=== PATIENT | female | born 1955 | race Caucasian/White ===

== ENCOUNTER 2020-07-04 11:36 | Emergency (ER) | payer OTHER, SELFPAY ==
[2020-07-04 12:00] VITALS: BP 110/65; PULSE 73; RESP 20; TEMP 36.3; O2SAT 100; BMI 27.8
--- NOTE | 2020-07-04 12:23 | HMH.EDUTC ---
[facility] [place] Disposition Clinical Impression: COVID-19 virus test result unknown, Upper respiratory infection, viral Disposition: Home, Self-Care Condition on Discharge: Good Instructions: DI for COVID-19 (Suspected or Confirmed ), Preventing the Spread of Coronavirus Discharge Instructions Additional Instructions: increase fluids tylenol or motrin as needed if symptoms worsen return o be seen in ed follow up with pcp this week self isolate until test results are known to be neg Prescriptions: Fluticasone Propionate [Flonase 50mcg nasal spray 16gm] 1 spr NS DAILY 14 Days #1 bottle Transmission Status: Pending to [id number] Referrals: Obdulio Hernandez [Primary Care Provider] - Time of Disposition: 12:30 Medical Decision Making - Patrick Inquiry Pt receiving controlled substance: No Vital Signs: 07/04/20 12:00 Temperature 97.4 F L Temperature Source Oral Pulse Rate [Right Brachial] 73 Respiratory Rate 20 Blood Pressure [Right Arm] 110/65 Blood Pressure Mean [Right Arm] 80 Blood Pressure Source [Right Arm] Automatic Cuff Blood Pressure Position [Right Arm] Sitting 02 Sat by Pulse Oximetry 100 Oxygen Delivery Method Room Air Orders (Tests/Meds): ORDERS Category Date Time Status Covid-19 Nasal PCR ([facility]) Routine Lab 07/04/20 11:44 Ordered [facility] [place] HPI - General Chief complaint: Urgent Treatment Center Stated complaint: WHITTAKER;Vomiting;Dizzy Time Seen by Provider: 07/04/20 12:23 Mode of Arrival: Ambulatory Source of Information: Patient Limitations: No Limitations Description of Symptoms (Recalled from Triage Doc. by RN): PATIENT C/O CHILLS, DIZZINESS, HEADACHE, AND VOMITING SINCE MONDAY. REQUESTING A COVID TEST HEENT Symptoms (Recalled from RN notes): No Resp Symptoms (Recalled from RN notes): No Skin Symptoms (Recalled from RN notes): No MS Symptoms (Recalled from RN notes): No Functional Status (Recalled from RN notes): WNL - History of Present Illness Provider Complaint: 64 yr old female presents for chills,body aches,nasal congestion and dizzy for 3 days and requesting covid test. - Related Data Home Medications Medication Instructions Recorded Confirmed venlafaxine 150 mg PO #30 cap 01/24/19 01/24/19 capsule,extended release 24 hr Previous Rx's Medication Instructions Recorded Fluticasone Propionate [Flonase 1 spr NS DAILY 14 Days #1 bottle 07/04/20 50mcg nasal spray 16gm] Allergies Allergy/AdvReac Type Severity Reaction Status Date / Time No Known Allergies Allergy Verified 01/24/19 10:33 - Worker's Comp Is this a Worker's Comp case?: No [facility] History - Hepatitis A Screen Drug use history?: No High risk sexual behaviors?: No History of sexually transmitted infection?: No Currently employed?: No Childcare worker?: No Do you have indoor plumbing?: Yes Do you have electricity?: Yes Attestation statement:: This patient has been screened for Hepatitis A risk factors. I have reviewed the patient's past medical history: Yes Medical History: Reports:: Anxiety Laterality Cases: Left: Other, Bilateral: Tonsillectomy Other Surgeries: Yes: - Social History Smoking Status: Never smoker Alcohol Intake: never Alcohol Intake Frequency:: holidays/special occasions only Substance Use Type: denies use Occupational Status: other Housing: house Household Members: family - Psychiatric History Pschychiatric History:: Reports:: Anxiety Family Hx:: No significant family history ROS Obtained: Yes Systems reviewed as appropriate & no additional complaints - Constitutional Constitutional: Reports system reviewed and no additional complaints, except as docu, Reports body ache, Reports chills, Reports fatigue, Denies fever(s) - Eyes Eyes: Reports system reviewed and no additional complaints, except as docu, Denies floaters - ENT Ears, Nose, Mouth, and Throat: Reports system reviewed and no additional complaints, except as docu, Reports dizziness, Repo
[2020-07-04 12:35] VITALS: BP 110/65; PULSE 73; RESP 20; TEMP 36.3; O2SAT 100
== END 2020-07-04 12:38 | disposition home or self-care (01) ==
PROVIDERS: Emergency Provider Nurse Practitioner Family; PCP Internal Medicine
DX: Z20.822 Contact with and (suspected) exposure to COVID-19 (principal); R42 Dizziness and giddiness; F41.9 Anxiety disorder, unspecified; Z79.899 Other long term (current) drug therapy
CPT/HCPCS: 99202; G0463; U0003

== ENCOUNTER → 2021-06-29 10:29 | Outpatient (CLI) | payer OTHER, SELFPAY | PROVIDERS: PCP Internal Medicine; Visit Provider Nurse Practitioner | DX: U07.1 COVID-19 (principal) | CPT/HCPCS: C9803; U0003; U0005 ==

== ENCOUNTER → 2021-09-06 14:11 | Outpatient (CLI) | payer MEDICARE, OTHER, SELFPAY ==
--- NOTE | 2021-09-06 14:18 | XR_ITS ---
FINAL REPORT CLINICAL HISTORY: LUMBAGO W/RT SCIATICA FINDINGS: 5 views of the lumbar spine were obtained. There is no evidence of fracture or dislocation. The vertebral alignment is normal. There are mild and moderate degenerative changes. There is mild leftward curvature. There is multilevel facet arthropathy. No paraspinous soft tissue abnormalities identified. IMPRESSION: Mild and moderate degenerative changes with multilevel facet arthropathy. Reviewed, Interpreted and Dictated by Merrill Seth III, MD Transcribed by Darren Del Rio Authenticated by Merrill Seth III, MD on 09/06/2021 04:23:44 PM [facility]
== END ==
PROVIDERS: PCP Internal Medicine; Visit Provider Internal Medicine
DX: M54.42 Lumbago with sciatica, left side (principal)
CPT/HCPCS: 72110

== ENCOUNTER → 2021-12-20 12:25 | Outpatient (CLI) | payer MEDICARE, OTHER, SELFPAY ==
[2021-12-20 13:13] LABS: Basophils % 0.7 % (0.1-2.0); Eosinophils # 0.1 K/mm3 (0.0-0.4); Eosinophils % 2.4 % (0.1-12.0); Hematocrit 39.5 % (37.0-47.0); Lymphocytes # 1.5 K/mm3 (0.7-4.5); Lymphocytes % 30.8 % (10-50); Mean Corpuscular HGB Conc 32.8 g/dL (31.8-35.4); Mean Corpuscular Hemoglobin 29.2 pg (27.0-31.2); Mean Corpuscular Volume 88.8 fl (81-99); Monocytes # 0.3 K/mm3 (0.1-1.0); Monocytes % 6.8 % (1.7-9.3); Neutrophils # 2.9 K/mm3 (1.8-7.8); Neutrophils % 59.3 % (37.0-80.0); Platelet Count 253 K/mm3 (142-424); Red Blood Count 4.44 M/mm3 (4.20-5.40); Red Cell Distribution Width 13.8 % (11.5-17.5)
[2021-12-20 13:58] LABS: Alanine Aminotransferase 24 U/L (12-78); Albumin Level 3.8 g/dl (3.5-5.0); Albumin/Globulin Ratio 1.7 (1.1-1.8); Alkaline Phosphatase 78 U/L (38-126); Anion Gap 11.2 mEq/L (5-15); Aspartate Amino Transferase 25 U/L (14-36); Bilirubin,Total 0.3 mg/dl (0.2-1.3); Blood Urea Nitrogen 13 mg/dl (7-17); Calcium 9.1 mg/dl (8.4-10.2); Carbon Dioxide 26 mmol/L (22.0-30.0); Chloride 104 mmol/L (98-107); Chol/HDL Ratio 2.2 (1-3.5); Cholesterol 182 mg/dl (140-200); Estimated Glomerular Filt Rate 72 ml/min (>60); GFR (African American) 87 ML/MIN (>60); Globulin 2.2 g/dL (1.3-3.2); Glucose 105 mg/dl (74-100); HDL Cholesterol 81 mg/dl (40-60); Potassium 4.2 mmoL/L (3.5-5.1); Sodium 137 mmol/L (136-145); Triglycerides 152 mg/dl (30-150); VLDL Cholesterol 30 mg/dL (0-40)
[2021-12-20 14:09] LABS: Direct LDL Cholesterol 58.62 mg/dL (100-129)
[2021-12-20 14:29] LABS: Thyroid Stimulating Hormone 5.08 uIU/mL (0.465-4.68)
== END ==
PROVIDERS: PCP Internal Medicine; Visit Provider Internal Medicine
DX: E03.9 Hypothyroidism, unspecified (principal); E78.5 Hyperlipidemia, unspecified; R73.01 Impaired fasting glucose
CPT/HCPCS: 80053; 80061; 84443; 85025

== ENCOUNTER → 2022-06-22 09:38 | Outpatient (CLI) | payer MEDICARE, OTHER, SELFPAY ==
--- NOTE | 2022-06-22 09:43 | XR_ITS ---
FINAL REPORT CLINICAL HISTORY: HIP PAIN FINDINGS: AP and frog leg views of the right hip were obtained. There is no prior exam for comparison. There is no acute fracture or dislocation. There is right hip degenerative disease. Soft tissues are within normal limits. IMPRESSION: No acute osseous abnormality of the right hip. If pain persists, MR is recommended. Reviewed, Interpreted and Dictated by Margarita Parham MD Transcribed by Jess Fernandez Authenticated and [facility]
== END ==
PROVIDERS: PCP Internal Medicine; Visit Provider Internal Medicine
DX: M25.551 Pain in right hip (principal)
CPT/HCPCS: 73502

== ENCOUNTER → 2022-06-22 11:54 | Outpatient (CLI) | payer MEDICARE, OTHER, SELFPAY ==
[2022-06-22 13:17] LABS: Chloride 108 mmol/L (98-107); Potassium 4.7 mmoL/L (3.5-5.1); Sodium 141 mmol/L (136-145)
[2022-06-22 13:19] LABS: Alanine Aminotransferase 29 U/L (12-78); Alkaline Phosphatase 85 U/L (38-126); Aspartate Amino Transferase 29 U/L (14-36); Bilirubin,Total 0.6 mg/dl (0.2-1.3); Blood Urea Nitrogen 14 mg/dl (7-17); Estimated Glomerular Filt Rate 72 ml/min (>60); GFR (African American) 87 ML/MIN (>60)
[2022-06-22 13:20] LABS: Albumin Level 4.1 g/dl (3.5-5.0); Albumin/Globulin Ratio 1.9 (1.1-1.8); Anion Gap 9.7 mEq/L (5-15); Calcium 8.9 mg/dl (8.4-10.2); Carbon Dioxide 28 mmol/L (22.0-30.0); Chol/HDL Ratio 2.3 (1-3.5); Cholesterol 168 mg/dl (140-200); Globulin 2.2 g/dL (1.3-3.2); Glucose 110 mg/dl (74-100); HDL Cholesterol 74 mg/dl (40-60); Total Protein,Serum 6.3 g/dl (6.3-8.2); Triglycerides 138 mg/dl (30-150); VLDL Cholesterol 28 mg/dL (0-40)
[2022-06-22 13:36] LABS: Direct LDL Cholesterol 51.27 mg/dL (100-129)
== END ==
PROVIDERS: PCP Internal Medicine; Visit Provider Internal Medicine
DX: E03.9 Hypothyroidism, unspecified (principal); E78.5 Hyperlipidemia, unspecified; R73.01 Impaired fasting glucose; F33.1 Major depressive disorder, recurrent, moderate; F41.9 Anxiety disorder, unspecified; M54.41 Lumbago with sciatica, right side
CPT/HCPCS: 73502; 80053; 80061; 84443

== ENCOUNTER → 2022-06-29 14:54 | Outpatient (CLI) | payer MEDICARE, OTHER, SELFPAY ==
--- NOTE | 2022-06-29 14:58 | MR_ITS ---
FINAL REPORT TECHNIQUE: Multiplanar MR without contrast CLINICAL HISTORY: LUMBAGO WITH RIGHT SCIATICA pain x 1 year FINDINGS: Sagittal images show normal vertebral height. There is minimal anterolisthesis of L2 on 3. The alignment is otherwise normal. Marrow signal pattern is unremarkable. T11-12: Mild annular disc bulge. T12-L1: Mild annular disc bulge. L1-2: Unremarkable L2-3: Mild annular disc bulge. Moderate facet arthropathy. Borderline central canal stenosis. L3-4: Moderate annular disc bulge and moderate facet arthropathy. Mild central canal stenosis. Moderate bilateral neural foraminal narrowing. L4-5: Mild annular disc bulge. Severe facet overgrowth. Ligamentum flavum hypertrophy. Moderate central canal stenosis and mild neural foraminal narrowing. L5-S1: Mild annular disc bulge. Moderate facet arthropathy. Mild central canal stenosis and mild neural foraminal narrowing. IMPRESSION: Multilevel degenerative disc disease, most pronounced at L4-5. Reviewed, Interpreted and Dictated by Jude Romero MD Transcribed by Jess Fernandez Authenticated and . [facility]
== END ==
PROVIDERS: PCP Internal Medicine; Visit Provider Internal Medicine
DX: M54.41 Lumbago with sciatica, right side (principal)
CPT/HCPCS: 72148; 76376

== ENCOUNTER → 2022-07-08 08:55 | Outpatient (POV) | payer MEDICARE, OTHER, SELFPAY ==
[2022-07-08 09:05] VITALS: BP 149/68; PULSE 69; RESP 18; O2SAT 98; BMI 28.5
--- NOTE | 2022-07-08 09:35 | EXP.PAIN.OV ---
HPI Data of Consult Patient: new to practice Consult date: 07/08/22 Requesting Physician: Stef Durham CRNA Primary Care Provider: Obdulio Hernandez MD Consult Narrative Reason for consult: Lumbar back pain. Bilateral hip and leg radicular symptoms. Right greater History of present illness: Ms. Wheeler is a 66 year old female who comes our clinic today for initial evaluation regarding low back pain that she describes as constant, dull, aching. The majority of her low back pain is off the right from the midline. She also complains of right buttock, thigh and sometimes radicular symptoms to the right foot. She rates her pain today 8/10. 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 She has difficulty with flexion, extension, left and right rotation. Patient's lumbar MRI was reviewed with the patient and her . Lumbar MRI shows multilevel degenerative disc lumbar spine. Disc bulge L4-5 with some moderate bilateral neural foraminal narrowing. Disc bulge L5-S1 with mild central canal stenosis. Multilevel facet arthropathy. Multilevel spondylosis. I discussed in detail with the patient regarding lumbar epidural steroid injection at the L4-5 level. Also, discussed exam with the patient regarding right sacroiliac joint inflammation. CC: Stef Durham CRNA [facility] Disclaimer: The information contained in this section may have been updated after the patient was seen, as this information can be updated by other users. Medical History (Updated 07/08/22 @ 09:42 by Stef Durahm CRNA) Anxiety Surgical History (Updated 07/08/22 @ 09:09 by Loren Carroll RN) H/O section H/O wrist surgery Hx of tonsillectomy Social History (Updated 07/08/22 @ 09:09 by Loren Carroll RN) Smoking Status: Never smoker alcohol intake: never substance use type: denies use current occupational status: employed and other Travel in the last 8 weeks: None household members: family housing: house Review of Systems Review of Systems Review of systems (narrative): Patient is awake alert [place] x3. In no acute distress. Flexion-extension lumbar spine very guarded secondary to pain. Deep tendon reflexes upper lower extremities normal. Motor strength upper and lower extremities normal. There is no gross sensory deficit. Gait is normal. *Musculoskeletal Comments: Lumbar back pain. Lumbar radiculopathy symptoms Meds Home Medications and Allergies Home Medications Medication Instructions Recorded Confirmed Type venlafaxine 150 mg 150 mg PO DAILY MOOD #30 caps 01/24/19 07/08/22 History capsule,extended release 24 hr fluticasone propionate 50 1 spr NS DAILY ALLERGIES 07/08/22 07/08/22 History mcg/actuation nasal spray,suspension New Prescriptions to Start Prescriptions: Allergies Allergy/AdvReac Type Severity Reaction Status Date / Time No Known Allergies Allergy Verified 01/24/19 10:33 Objective Vital signs: Pulse Resp BP Pulse Ox 69 18 149/68 H 98 07/08/22 09:05 07/08/22 09:05 07/08/22 09:05 07/08/22 09:05 Opioid Risk Tool Opioid Risk Tool-Female Family hx alcohol abuse: No Family hx illegal drugs: No Family hx rx drug abuse: No Personal hx alcohol abuse: No Personal hx illegal drugs: No Personal hx rx drug abuse: No Age: 45+ Hx of sexual abuse: No Mental health issues-ADD,OCD,Bipolar, etc: No Hx of depression: Yes Female Risk Score: 1 Assessment and Plan *Assessment and plan (1) DDD (degenerative disc disease), lumbar: Status: Acute Category: Medical Code(s): M51.36 - Other intervertebral disc degeneration, lumbar region (2) Radicular pain of both lower extremities: Status: Acute Category: Medical Code(s): M54.10 - Radiculopathy, site unspecified (3) Sacroiliac inflammation: Status: Acute Category: Medical Code(s): M46.1 - Sacroi
== END ==
PROVIDERS: PCP Internal Medicine; Visit Provider Nurse Anesthetist, Certified Registered
DX: M51.16 Intervertebral disc disorders with radiculopathy, lumbar region (principal); M46.1 Sacroiliitis, not elsewhere classified
CPT/HCPCS: 99202; G0463

== ENCOUNTER 2022-07-12 08:20 | Day surgery (SDC) | payer MEDICARE, OTHER, SELFPAY ==
[2022-07-12 08:34] VITALS: BP 153/91; PULSE 65; RESP 18; TEMP 36.6; O2SAT 99; BMI 28.5
[2022-07-12 08:58] VITALS: BP 158/77; PULSE 62; RESP 18; O2SAT 98
[2022-07-12 08:59] VITALS: BP 158/77; PULSE 62; RESP 18; O2SAT 98
[2022-07-12 09:01] VITALS: BP 150/70; PULSE 62; RESP 18; O2SAT 99
--- NOTE | 2022-07-12 09:22 | EXP.PAIN.PRO ---
Procedure Date: 07/12/22 Time: 09:00 Anesthesiologist:: Stef Durham CRNA Complications:: None Pre-procedure Diagnosis:: Degenerative disc disease lumbar spine multilevels. Lumbar radiculopathy Post-procedure Diagnosis:: Same. Indications for Procedure:: Very pleasant 66-year-old female comes our clinic today for lumbar epidural steroid injection at the L4-5 level. Patient describes her low back pain is constant, dull, aching. Also complains of bilateral hip and leg radicular symptoms at times. She rates her pain today 7/10. Procedure Details:: Procedure: Lumbar epidural steroid injection under fluoroscopy Informed consent was obtained and the risks and benefits of the procedure were explained to the patient. The patient was taken to the procedure room and noninvasive monitors placed, including noninvasive blood pressure cuff and pulse oximeter. The back was viewed using C-arm Fluoroscopy and prepped using Chloraprep as a cleansing solution and the L4-L5 interspace was palpated. Skin and subcutaneous tissues were anesthetized using lidocaine 1.5% and a 25-gauge needle. After this, an 18-gauge Touhy epidural needle was placed into the L4-L5 interspace and advanced using fluoroscopic guidance and loss of resistance to air until the epidural space was encountered. After confirmation of needle placement in the epidural space, with dye, a solution containing normal saline, 3 mL and Depo-Medrol 80 mg were incrementally injected into the lumbar epidural space. The patient tolerated the procedure well with no complications. The patient was observed in the Pain Clinic and then discharged home neurologically intact. Plan and Disposition:: Patient was discharged without incident.
== END 2022-07-12 09:01 | disposition home or self-care (01) ==
PROVIDERS: PCP Internal Medicine; Visit Provider Nurse Anesthetist, Certified Registered
DX: M51.16 Intervertebral disc disorders with radiculopathy, lumbar region (principal)
CPT/HCPCS: 62323; J1040

== ENCOUNTER → 2022-08-17 10:09 | Outpatient (POV) | payer MEDICARE, OTHER, SELFPAY ==
[2022-08-17 10:34] VITALS: BP 129/81; PULSE 69; RESP 20; BMI 27.8
--- NOTE | 2022-08-17 12:15 | A.OFFVIS_ITS ---
[facility] Pain Management SOAP Note Subjective:: Patient is a pleasant 67-year-old female who presents today for follow-up of lumbar epidural steroid injection at L4-L5 on 07/12/2022. We are currently treating the patient for degenerative disc disease of lumbar spine with lumbar radiculopathy symptoms, sacroiliitis. Today she states that she has had at least 80% improvement following this injection and feels like it still continuing to provide additional relief. She rates her pain a 0 out of 10. Patient denies any new trauma or injury. Patient denies any change location or type of pain she experiences. She does state that she has noticed improvement in her sleeping as well as her hips are no longer hurting. Patient will just use ibuprofen as needed however she is not needed to do this since having the injection. Patient is not on any scheduled medications. Her Patrick is [phone]. Its been reviewed and appropriate. Review of Systems: General: No recent weight changes, no fever, no sleep disturbances Respiratory: No cough, no shortness of air, no recurring pulmonary infections Cardiovascular/peripheral vascular: No chest pain, no palpitations, no edema, no shortness of breath Gastrointestinal: No new onset incontinence, normal bowel movements reported Genitourinary: No new onset incontinence Musculoskeletal: Low back pain Psychiatric: [Normal mood/affect] Neurological: [Denies weakness in extremities], [denies balance issues] Objective:: Physical Exam: General: Alert and oriented x3, no acute distress, pleasant and cooperative Lungs: Respirations even and unlabored, symmetrical chest expansion Eyes: PERRL Musculoskeletal: Flexion and extension of lumbar [spine] somewhat guarded secondary to pain, [antalgic gait noted] Neurological: Speech clear, no gross sensory deficit Assessment:: Degenerative disc disease of lumbar spine with lumbar radiculopathy symptoms, sacroiliitis Plan:: Patient has had significant improvement following her lumbar epidural steroid injection and does not require any additional injective therapy at this time. Patient will return to clinic in 1 month for reevaluation of symptoms, and plan of care. Patient has been instructed to contact the clinic with any concerns before the next appointment. Dr. Wilder has reviewed this note and agrees with this plan of care. This note was dictated using voice recognition software and make contain errors or omissions. [facility] Disclaimer: The information contained in this section may have been updated after the patient was seen, as this information can be updated by other users. Medical History Anxiety Surgical History H/O section H/O wrist surgery Hx of tonsillectomy Family History (Updated 07/12/22 @ 08:35 by Yue Hansen RN) Other No significant family history Social History Smoking Status: Never smoker alcohol intake: never substance use type: denies use current occupational status: employed Travel in the last 8 weeks: None household members: family housing: house
== END ==
PROVIDERS: PCP Internal Medicine; Visit Provider Nurse Practitioner Family
DX: M51.16 Intervertebral disc disorders with radiculopathy, lumbar region (principal); M46.1 Sacroiliitis, not elsewhere classified
CPT/HCPCS: 99212; G0463

== ENCOUNTER 2022-08-22 14:42 | Emergency (ER) | payer MEDICARE, OTHER, SELFPAY ==
[2022-08-22 14:43] VITALS: BP 131/77; PULSE 71; RESP 18; TEMP 36.5; O2SAT 100; BMI 27.8
--- NOTE | 2022-08-22 15:02 | XR_ITS ---
FINAL REPORT CLINICAL HISTORY: fall, pain FINDINGS: 3 views of the left shoulder were obtained. There is no acute fracture or dislocation. The joint spaces are intact. There are no soft tissue abnormalities. IMPRESSION: No acute process. Reviewed, Interpreted and Dictated by Haris Sharif MD Transcribed by Darren Del Rio Authenticated and [facility]
--- NOTE | 2022-08-22 15:02 | PC.NURSE ---
ice pack placed on L shoulder area.
[2022-08-22 16:27] VITALS: BP 115/70; PULSE 72; RESP 18; O2SAT 95
--- NOTE | 2022-08-22 16:32 | HMH.EDGENADL ---
Discharge Plan Disposition Patient Disposition: Home, Self-Care Condition: Good Chief Complaint: Extremity Injury, Upper Prescriptions Prescriptions: No Action venlafaxine 150 mg capsule,extended release 24hr 150 mg PO DAILY Qty: 30 Label Comments: TAKE 1 CAPSULE BY MOUTH ONCE DAILY fluticasone propionate 120 SPR/BOT spray,suspension 1 spr NS DAILY Referrals Follow up/Referrals: Obdulio Hernandez MD [Primary Care Provider] - See instructions Clinical Impressions Clinical Impression: Fall, Acute pain of left shoulder Instructions Patient Instructions: DI for Chronic Pain -- Adult Discharge ED Provider: Johnny Mays General Adult HPI General Chief complaint: Extremity Injury, Upper Stated complaint: left arm pain ao fell at home 1:30 08/22/22 Time Seen by Provider: 08/22/22 16:32 Mode of Arrival: Ambulatory Source of Information: Patient Limitations: No Limitations Description of Symptoms (Recalled from ER Triage Doc. by RN): pt c/o L shoulder and L elbow pain r/t fall. Pt reports she tripped her dog and fell, landing on her shoulder. Pt denies LOC. Denies head/neck or Lower extremity pain. No open areas noted. to LUE. History of Present Illness HPI narrative: 67yo F presents the ER after tripping over her dog and falling. Complains of left shoulder pain. Denies head strike or LOC. Denies any other injury besides her left shoulder. No history of fracture of her shoulder or prior surgery to her shoulder. Related Data Home Medications Medication Instructions Recorded Confirmed venlafaxine 150 mg 150 mg PO DAILY MOOD #30 caps 01/24/19 08/17/22 capsule,extended release 24 hr fluticasone propionate 50 1 spr NS DAILY ALLERGIES 07/08/22 08/17/22 mcg/actuation nasal spray,suspension Allergies Allergy/AdvReac Type Severity Reaction Status Date / Time No Known Allergies Allergy Verified 07/12/22 08:35 [facility] Disclaimer: The information contained in this section may have been updated after the patient was seen, as this information can be updated by other users. Medical History Anxiety Surgical History H/O section H/O wrist surgery Hx of tonsillectomy Family History Other No significant family history Social History Smoking Status: Never smoker alcohol intake: never substance use type: denies use current occupational status: employed Travel in the last 8 weeks: None household members: family housing: house ROS Obtained: Yes Systems reviewed as appropriate & no additional complaints except as documented Physical Exam General General appearance: alert and in no apparent distress Head Head exam: atraumatic Eye Eye exam: Present normal appearance Chest Chest inspection: Present normal inspection Respiratory Respiratory exam: Present normal lung sounds bilaterally Cardiovascular Cardiovascular exam: Present regular rate and normal rhythm Extremities Exam Extremities exam: Present tenderness (Left shoulder exquisitely tender to palpate) and normal capillary refill; Absent full ROM, edema or joint swelling Neurological Exam Neurological exam: Present alert, oriented X3 and CN II-XII intact Medical Decision Making Medical Records Medical records reviewed: Yes I reviewed the patient's medical records. Patrick Inquiry Pt receiving controlled substance: No Vital Signs: 08/22/22 14:43 08/22/22 16:27 Temperature 97.7 F Temperature Source Oral Pulse Rate 72 Pulse Rate [Right Radial] 71 Respiratory Rate 18 18 Blood Pressure 115/70 Blood Pressure [Right Arm] 131/77 Blood Pressure Mean [Right Arm] 95 Blood Pressure Source Automatic Cuff Blood Pressure Source [Right Arm] Automatic Cuff Blood Pressure Position Sittin
[2022-08-22 16:48] VITALS: BP 125/71; PULSE 76; RESP 16; TEMP 36.5; O2SAT 96
== END 2022-08-22 16:48 | disposition home or self-care (01) ==
PROVIDERS: Emergency Provider Family Medicine; PCP Internal Medicine
DX: M25.512 Pain in left shoulder (principal); W01.10XA Fall on same level from slipping, tripping and stumbling with subsequent striking against unspecified object, initial encounter
CPT/HCPCS: 73030; 99283; 99284

== ENCOUNTER → 2022-10-04 13:30 | Outpatient (CLI) | payer MEDICARE, OTHER, SELFPAY ==
--- NOTE | 2022-10-04 13:34 | MR_ITS ---
FINAL REPORT CLINICAL HISTORY: DUE TO A FALL FALL X 7 WEEKS AGO LIMITED ROM FINDINGS: Multi planar MR imaging of the left shoulder was performed. The supraspinatus tendon appears intact. There is no abnormal fluid in the subacromial/subdeltoid bursa. There is extensive marrow edema in the proximal humeral metaphysis. A transverse fracture extends through the surgical neck. Neck component extends to the anatomic neck. Fracture is mildly impacted. There is surrounding fluid. There is irregularity of the anterior glenoid labrum consistent with a chronic tear. The biceps tendon appears intact. There are mild hypertrophic changes of the AC joint. IMPRESSION: Impacted fracture of the proximal humeral metaphysis involving the surgical and anatomic necks. Chronic anterior labral tear. Reviewed, Interpreted and Dictated by Haris Sharif MD Transcribed by Darren Del Rio Authenticated and [facility]
== END ==
PROVIDERS: PCP Internal Medicine; Visit Provider Internal Medicine
DX: S40.012A Contusion of left shoulder, initial encounter (principal); W19.XXXA Unspecified fall, initial encounter
CPT/HCPCS: 73221

== ENCOUNTER 2022-10-06 11:00 | Outpatient (RCR) | payer MEDICARE, OTHER, SELFPAY ==
--- NOTE | 2022-08-29 09:01 | HMH.OTOPEV ---
OT Inpatient Evaluation Rehab OT Outpatient Eval Start: 08/29/22 08:40 Freq: Status: Active Protocol: Document 08/29/22 08:40 DONNA (Rec: 08/29/22 09:01 VICENTEADRIAN [id number]) E-signed By Kirsten Smith, OT Outpatient Therapy Subjective History Subjective History 67 year old female referred to skilled OP OT services for L shld contustion after having a falling at home on 08/22/22. Patient fell at home on concrete after her dog out underneath her legs. X-ray shows no fractures at this time. However Patient exhibit limited AROM and bruising underneath arm. Chief Complaint Pain,Weakness Symptom Type Ache Symptoms Relieved By Nothing Symptoms Aggravated By Physical Activity Prior Functional Limitations None Current Functional Limitations Reaching,Lifting,Driving, Sleeping,Recreation Activity Symptom Description Constant and Continuous Level of pain today (0-10) 4 Pain scale - at its best (0-10) 4 Pain scale - at its worst (0-10) 10 Shoulder/Elbow Eval Shoulder Objective Measurements Shoulder ROM Left Shoulder Abduction Active Range of 50 Motion (degrees) Shoulder Flexion Active Range of Motion 40 (degrees) Query Text: Shoulder External Rotation Active Range 0 of Motion (degrees) Shoulder Internal Rotation Active Range 30 of Motion (degrees) pain with active ROM shoulder exam left standard Shoulder MMT Shoulder Extension Strength Grade 2 Poor Shoulder Flexion Strength Grade 2 Poor Shoulder Horizontal Abduction Strength 2 Poor Grade Shoulder Horizontal Adduction Strength 2 Poor Grade Infraspinatus/Teres Minor Strength Grade 2 Poor Shoulder External Rotation Strength 2 Poor Grade Shoulder Internal Rotation Strength 2 Poor Grade Shoulder Special Tests impingement sign present shoulder exam left standard Shoulder Empty Can (Supraspinatus) Test Positive Left Shoulder Devine-Gage Impingement Positive Left Test Elbow Objective Measurements OT Outpatient Assessment Impairments Problems/Impairments Impaired Range of Motion, Impaired Strength,Subjective C /O Pain Prognosis Rehab Potential Good Clinical Impression
== END 2022-10-06 11:05 | disposition home or self-care (01) ==
LOC: OT 11:00
PROVIDERS: PCP Internal Medicine; Visit Provider Internal Medicine
DX: S40.012S Contusion of left shoulder, sequela (principal); W19.XXXS Unspecified fall, sequela
CPT/HCPCS: 97010; 97014; 97110; 97140; 97164; 97165; 97530; G0283

== ENCOUNTER 2023-01-05 11:00 | Outpatient (RCR) | payer MEDICARE, OTHER, SELFPAY | END 2023-01-05 11:05 | disposition home or self-care (01) | LOC: OT 11:00 | PROVIDERS: PCP Internal Medicine; Visit Provider Orthopaedic Surgery Sports Medicine | DX: S42.202A Unspecified fracture of upper end of left humerus, initial encounter for closed fracture (principal) | CPT/HCPCS: 97010; 97014; 97035; 97110; 97140; 97164; 97165; 97530; G0283 ==

== ENCOUNTER → 2023-01-09 17:00 | Outpatient (CLI) | payer MEDICARE, OTHER, SELFPAY ==
[2023-01-09 18:14] LABS: Basophils % 0.6 % (0.1-2.0); Eosinophils # 0.1 K/mm3 (0.0-0.4); Eosinophils % 2.4 % (0.1-12.0); Lymphocytes # 1.6 K/mm3 (0.7-4.5); Lymphocytes % 30.7 % (10-50); Mean Corpuscular HGB Conc 31.7 g/dL (31.8-35.4); Mean Corpuscular Hemoglobin 28.7 pg (27.0-31.2); Mean Corpuscular Volume 90.5 fl (81-99); Mean Platelet Volume 9.4 fl (7.4-10.4); Monocytes # 0.5 K/mm3 (0.1-1.0); Monocytes % 8.9 % (1.7-9.3); Neutrophils % 57.4 % (37.0-80.0); Platelet Count 247 K/mm3 (142-424); Red Blood Count 4.53 M/mm3 (4.20-5.40); Red Cell Distribution Width 14.2 % (11.5-17.5); White Blood Count 5.3 K/mm3 (4.8-10.8)
[2023-01-09 18:37] LABS: Alanine Aminotransferase 37 U/L (12-78); Albumin Level 4.1 g/dl (3.5-5.0); Albumin/Globulin Ratio 1.8 (1.1-1.8); Alkaline Phosphatase 87 U/L (38-126); Anion Gap 11.8 mEq/L (5-15); Aspartate Amino Transferase 34 U/L (14-36); Bilirubin,Total 0.3 mg/dl (0.2-1.3); Blood Urea Nitrogen 13 mg/dl (7-17); Calcium 9.1 mg/dl (8.4-10.2); Carbon Dioxide 26 mmol/L (22.0-30.0); Chloride 107 mmol/L (98-107); Chol/HDL Ratio 2.1 (1-3.5); Cholesterol 196 mg/dl (140-200); Estimated Glomerular Filt Rate 84 ml/min (>60); GFR (African American) 101 ML/MIN (>60); Globulin 2.3 g/dL (1.3-3.2); Glucose 87 mg/dl (74-100); HDL Cholesterol 94 mg/dl (40-60); Potassium 4.8 mmoL/L (3.5-5.1); Sodium 140 mmol/L (136-145); Total Protein,Serum 6.4 g/dl (6.3-8.2); Triglycerides 119 mg/dl (30-150); VLDL Cholesterol 24 mg/dL (0-40)
[2023-01-09 18:51] LABS: Direct LDL Cholesterol 69.92 mg/dL (100-129)
[2023-01-09 19:08] LABS: Thyroid Stimulating Hormone 2.48 uIU/mL (0.465-4.68)
== END ==
PROVIDERS: PCP Internal Medicine; Visit Provider Internal Medicine
DX: E03.9 Hypothyroidism, unspecified (principal); E78.5 Hyperlipidemia, unspecified; F33.1 Major depressive disorder, recurrent, moderate; F41.9 Anxiety disorder, unspecified; R73.01 Impaired fasting glucose
CPT/HCPCS: 80053; 80061; 84443; 85025

== ENCOUNTER 2023-07-17 17:05 | Outpatient (CLI) | payer MEDICARE, OTHER, SELFPAY ==
[2023-07-17 18:11] LABS: Alanine Aminotransferase 25 U/L (12-78); Albumin Level 3.9 g/dl (3.5-5.0); Albumin/Globulin Ratio 1.9 (1.1-1.8); Alkaline Phosphatase 73 U/L (38-126); Aspartate Amino Transferase 26 U/L (14-36); Bilirubin,Total 0.7 mg/dl (0.2-1.3); Blood Urea Nitrogen 18 mg/dl (7-17); Calcium 9.2 mg/dl (8.4-10.2); Carbon Dioxide 28 mmol/L (22.0-30.0); Chloride 105 mmol/L (98-107); Chol/HDL Ratio 2.4 (1-3.5); Cholesterol 188 mg/dl (140-200); Estimated Glomerular Filt Rate 84 ml/min (>60); GFR (African American) 101 ML/MIN (>60); Globulin 2.1 g/dL (1.3-3.2); Glucose 91 mg/dl (74-100); HDL Cholesterol 78 mg/dl (40-60); Sodium 139 mmol/L (136-145); Triglycerides 100 mg/dl (30-150); VLDL Cholesterol 20 mg/dL (0-40)
[2023-07-17 18:22] LABS: Direct LDL Cholesterol 68.46 mg/dL (100-129)
== END 2023-07-17 23:59 ==
LOC: LAB.DROPOF 17:06
PROVIDERS: PCP Internal Medicine; Visit Provider Internal Medicine
DX: R73.01 Impaired fasting glucose (principal); E03.9 Hypothyroidism, unspecified; E78.5 Hyperlipidemia, unspecified
CPT/HCPCS: 80053; 80061

== ENCOUNTER 2023-09-14 08:32 | Outpatient (POV) | payer MEDICARE, MEDICAID, SELFPAY ==
[2023-09-13 09:06] VITALS: BP 152/73; PULSE 71; RESP 18; TEMP 36.6; O2SAT 96; BMI 26.6
--- NOTE | 2023-09-13 10:58 | A.OFFVIS_ITS ---
[facility] Pain Management SOAP Note Subjective:: Patient is a pleasant 58-year-old female who presents today for follow-up. Today she rates her pain a 7 out of 10. Patient states that she is experiencing worsening pain in her low back that does radiate down her entire right leg. She describes it as a constant aching, throbbing sensation with numbness and tingling into her extremity. Patient states that the pain does interfere with her ability to perform activities of daily living such as cooking and cleaning. She states that the pain does cause trouble worsening pain with prolonged positioning such as sitting or standing. Patient is interested in any help we may be able to provide. Patient is prescribed meloxicam however she states that she does not take this on a regular basis. Her Patrick has been reviewed Review of Systems: General: No recent weight changes, no fever, no sleep disturbances Respiratory: No cough, no shortness of air, no recurring pulmonary infections Cardiovascular/peripheral vascular: No chest pain, no palpitations, no edema, no shortness of breath Gastrointestinal: No new onset incontinence, normal bowel movements reported Genitourinary: No new onset incontinence Musculoskeletal: Low back pain, right leg pain Psychiatric: [Normal mood/affect] Neurological: [Denies weakness in extremities], [denies balance issues] Objective:: Physical Exam: General: Alert and oriented x3, no acute distress, pleasant and cooperative Lungs: Respirations even and unlabored, symmetrical chest expansion Eyes: PERRL Musculoskeletal: Flexion and extension of lumbar [spine] somewhat guarded secondary to pain, [antalgic gait noted] positive right leg raise with decreased sensation to light touch and decreased reflexes Neurological: Speech clear, no gross sensory deficit Assessment:: Degenerative disc disease of lumbar spine with lumbar radiculopathy symptoms, right leg pain, sacroiliitis Plan:: Patient is experiencing worsening pain in her low back with radiating symptoms down her entire right leg. Patient had limited range of motion of her lumbar spine along with a positive right leg raise and decreased sensation light touch and decreased reflexes. I have discussed with the patient that she may benefit from a right transforaminal epidural steroid injection. Risk and benefits were discussed with the patient and she would like to proceed forward with this plan of care. Patient is not on any blood thinners. I will also refill the patient's meloxicam 15 mg daily. She has been counseled to discontinue all other NSAIDs while taking this medication and to take it with food to minimize GI upset. Patient will be scheduled for a right transforaminal epidural steroid injection L4-L5 and L5-S1 under fluoroscopy. Patient has been instructed to contact the clinic with any concerns before the next appointment. Dr. Wilder has reviewed this note and agrees with this plan of care. This note was dictated using voice recognition software and make contain errors or omissions. [facility] Disclaimer: The information contained in this section may have been updated after the patient was seen, as this information can be updated by other users. Medical History Anxiety Surgical History H/O section H/O wrist surgery Hx of tonsillectomy Family History Other No significant family history Social History Smoking Status: Never smoker alcohol intake: never substance use type: denies use current occupational status: retired Travel in the last 8 weeks: None household members: family housing: house
== END 2023-09-14 23:59 | disposition home or self-care (01) ==
PROVIDERS: PCP Internal Medicine; Visit Provider Nurse Practitioner Family
DX: M51.16 Intervertebral disc disorders with radiculopathy, lumbar region (principal); M79.604 Pain in right leg; M46.1 Sacroiliitis, not elsewhere classified
CPT/HCPCS: 99212; G0463

== ENCOUNTER 2023-09-26 08:39 | Day surgery (SDC) | payer MEDICARE, OTHER, MEDICAID, SELFPAY ==
[2023-09-26 08:46] VITALS: BP 129/73; PULSE 68; RESP 16; O2SAT 95; BMI 26.9
[2023-09-26] MEDS: LIDOCAINE 1% 5ML PF VIAL 5 ML (08:54)
[2023-09-26 08:55] VITALS: BP 137/54; PULSE 68; RESP 18; O2SAT 99
[2023-09-26 08:58] VITALS: BP 137/54; PULSE 67; RESP 18; O2SAT 99
[2023-09-26 09:01] VITALS: BP 106/65; PULSE 70; RESP 16; O2SAT 95
--- NOTE | 2023-09-26 09:01 | P.PCN_ITS ---
Procedure Date: 09/26/23 Time: 08:45 Anesthesiologist:: Stef Durham CRNA Complications:: None Pre-procedure Diagnosis:: Degenerative disc lumbar spine multilevels. Lumbar radiculopathy. Lumbar disc bulge L4-5, L5-S1. Post-procedure Diagnosis:: Same. Indications for Procedure:: Patient is a very pleasant 68-year-old female that comes her clinic today for repeat right L4-5, L5-S1 transforaminal epidural steroid injection. She had significant improvement terms of her overall right low back hip pain as well as right hip and leg radicular symptoms with previous injection same level. She rates her pain today 5/10. Procedure Details:: Details of the procedure were explained to the patient. The patient was taken the procedure room placed in the prone position. The area of the lumbar spine was cleansed using chlorhexidine as a cleansing solution. At this time using fluoroscopy guidance markers were placed on the right lateral border of the L4 and L5 vertebral body. The skin and subcutaneous tissue was anesthetized using 1% lidocaine and 25-gauge needle. At this time using a 22-gauge 3-1/2 inch spinal needle the right upper one third of the L4-5 foramen was accessed. The same was done at the right L5-S1 foramen. Needle positions were confirmed and a lateral view using fluoroscopy and contrast dye. At this time 1 cc of 1% lidocaine +20 mg of Depo-Medrol was injected at each level after negative aspiration. [place] were removed. Band-Aid applied. Patient tolerated the procedure without difficulty. There are no complications. Plan and Disposition:: Patient was discharged without incident.
== END 2023-09-26 09:01 | disposition home or self-care (01) ==
PROVIDERS: PCP Internal Medicine; Visit Provider Nurse Anesthetist, Certified Registered
DX: M51.16 Intervertebral disc disorders with radiculopathy, lumbar region (principal); M51.26 Other intervertebral disc displacement, lumbar region
CPT/HCPCS: 64483; 64484; J1010

== ENCOUNTER 2023-10-09 09:07 | Outpatient (POV) | payer MEDICARE, OTHER, MEDICAID, SELFPAY ==
--- NOTE | 2023-10-09 09:17 | A.OFFVIS_ITS ---
[facility] Pain Management SOAP Note Subjective:: Patient is a pleasant 68-year-old female who presents today for follow-up of right transforaminal epidural steroid injection L4-L5 and L5-S1 on 09/26/2023. Today she rates her pain a 6 out of 10. Patient denies any new trauma or injury. She does state that she had at least 50% improvement in her overall leg symptoms going down the right side and that this has improved and is still doing somewhat well. Patient does state however that all last week she was on her feet a lot with work and it did aggravate her overall radicular symptoms. Patient does state that she feels like the last injection helped better than this 1 on the overall back pain. Patient states her pain today is a pressure sensation with stabbing pains that we will provide numbness and tingling into her right lower extremity. Patient did previously have a lumbar epidural back at the beginning of July that did provide 80% improvement. Patient is interested in repeating this injection if possible as the pain is interfering with her ability perform activities of daily living such as cooking and cleaning. Patient has tried and failed conservative therapy including continued at home exercise and stretching for longer than 6 weeks. Her Patrick has been reviewed and is appropriate. Review of Systems: General: No recent weight changes, no fever, no sleep disturbances Respiratory: No cough, no shortness of air, no recurring pulmonary infections Cardiovascular/peripheral vascular: No chest pain, no palpitations, no edema, no shortness of breath Gastrointestinal: No new onset incontinence, normal bowel movements reported Genitourinary: No new onset incontinence Musculoskeletal: Low back pain, bilateral leg pain Psychiatric: [Normal mood/affect] Neurological: [Denies weakness in extremities], [denies balance issues] Objective:: Physical Exam: General: Alert and oriented x3, no acute distress, pleasant and cooperative Lungs: Respirations even and unlabored, symmetrical chest expansion Eyes: PERRL Musculoskeletal: Flexion and extension of lumbar [spine] somewhat guarded secondary to pain, [antalgic gait noted] Neurological: Speech clear, no gross sensory deficit Assessment:: Degenerative disc disease of lumbar spine with lumbar radiculopathy symptoms, right leg pain, sacroiliitis Plan:: Patient is experiencing worsening pain in her low back and legs with limited range of motion. I have discussed with patient that she may benefit from a repeat lumbar epidural. Risk and benefits were discussed with the patient and she would like to proceed forward with this plan of care. Patient did previously have a lumbar epidural of L4-L5 back at the beginning of July that provided 80% relief. Patient did have significant overall improved funct ion following this injection. Patient has continued at home exercising and stretching for longer than 6 weeks with minimal improvement from her last injection. We will schedule the patient for an LESI L4-L5 under fluoroscopy. Patient is not on any blood thinners. Patient has been instructed to contact the clinic with any concerns before the next appointment. Dr. Wilder has reviewed this note and agrees with this plan of care. This note was dictated using voice recognition software and make contain errors or omissions. [facility] Disclaimer: The information contained in this section may have been updated after the patient was seen, as this information can be updated by other users. Medical History Anxiety Surgical History H/O section H/O wrist surgery Hx of tonsillectomy Family History Other No significant family history Social History Smoking Status: Never smoker alcohol intake: never substance use type: denies use current occupational status: retired Travel in the last 8 weeks: None household members: family housing: house
[2023-10-09 09:29] VITALS: BP 138/70; PULSE 62; RESP 18; TEMP 36.6; O2SAT 98; BMI 26.9
== END 2023-10-09 23:59 | disposition home or self-care (01) ==
LOC: SC.PAIN 09:09
PROVIDERS: PCP Internal Medicine; Visit Provider Nurse Practitioner Family
DX: M51.16 Intervertebral disc disorders with radiculopathy, lumbar region (principal); M79.604 Pain in right leg; M46.1 Sacroiliitis, not elsewhere classified
CPT/HCPCS: 99212; G0463

== ENCOUNTER 2023-10-24 09:49 | Day surgery (SDC) | payer MEDICARE, OTHER, MEDICAID, SELFPAY ==
[2023-10-24 10:14] VITALS: BP 147/71; PULSE 66; RESP 16; O2SAT 98
[2023-10-24] MEDS: methylPREDNISolone ACETATE 80MG/ML VIAL 80 MG (10:16)
[2023-10-24 10:21] VITALS: BP 119/62; PULSE 63; RESP 18; TEMP 36.1; O2SAT 97
--- NOTE | 2023-10-24 10:21 | P.PCN_ITS ---
Procedure Date: 10/24/23 Time: 10:10 Anesthesiologist:: Stef Durham CRNA Complications:: None Pre-procedure Diagnosis:: Degenerative disc lumbar spine multilevels. Lumbar radiculopathy. Lumbar spondylosis. Multilevel lumbar facet arthropathy. Post-procedure Diagnosis:: Same. Indications for Procedure:: Patient is a very pleasant 68-year-old female comes our clinic today for a lumbar epidural steroid injection at the L4-5 level. Patient reports low lumbar back pain as well as bilateral hip and leg radicular symptoms at times. She rates her pain 7/10. Patient has responded very well to lumbar epidural steroid injections in the past. Procedure Details:: Procedure: Lumbar epidural steroid injection under fluoroscopy Informed consent was obtained and the risks and benefits of the procedure were explained to the patient. The patient was taken to the procedure room and noninvasive monitors placed, including noninvasive blood pressure cuff and pulse oximeter. The back was viewed using C-arm Fluoroscopy and prepped using Chlor aprep as a cleansing solution and the L4-L5 interspace was palpated. Skin and subcutaneous tissues were anesthetized using lidocaine 1.5% and a 25-gauge needle. After this, an 18-gauge Touhy epidural needle was placed into the L4-L5 interspace and advanced using fluoroscopic guidance and loss of resistance to air until the epidural space was encountered. After confirmation of needle placement in the epidural space, with dye, a solution containing normal saline, 3 mL and Depo-Medrol 80 mg were incrementally injected into the lumbar epidural space. The patient tolerated the procedure well with no complications. The patient was observed in the Pain Clinic and then discharged home neurologically intact. Plan and Disposition:: Patient was discharged without incident.
[2023-10-24 10:24] VITALS: BP 139/76; PULSE 64; RESP 18; TEMP 36.1; O2SAT 97; BMI 27.1
== END 2023-10-24 10:21 | disposition home or self-care (01) ==
PROVIDERS: PCP Internal Medicine; Visit Provider Nurse Anesthetist, Certified Registered
DX: M51.16 Intervertebral disc disorders with radiculopathy, lumbar region (principal); M47.26 Other spondylosis with radiculopathy, lumbar region
CPT/HCPCS: 62323; J1010

== ENCOUNTER 2023-11-01 14:55 | Outpatient (CLI) | payer MEDICARE, OTHER, MEDICAID, SELFPAY ==
--- NOTE | 2023-11-01 15:04 | XR_ITS ---
FINAL REPORT CLINICAL HISTORY: Right hip pain COMPARISON: 06/22/2022 FINDINGS: RIGHT HIP Two views of the right hip and an AP view of the pelvis demonstrate no acute fracture or dislocation. The joint spaces appear normal. The visualized bony structures are well aligned. No soft tissue abnormality is seen. IMPRESSION: No acute bony abnormality. Reviewed, Interpreted and Dictated by Haris Sharif MD Transcribed by Giselle Terrell Authenticated and [facility]
== END 2023-11-01 23:59 | disposition home or self-care (01) ==
LOC: RAD 14:57
PROVIDERS: PCP Internal Medicine; Visit Provider Internal Medicine
DX: M25.551 Pain in right hip (principal)
CPT/HCPCS: 73502

== ENCOUNTER 2023-11-08 14:18 | Outpatient (POV) | payer MEDICARE, OTHER, MEDICAID, SELFPAY ==
--- NOTE | 2023-11-08 14:44 | EXP.PAIN.SOA ---
[facility] Pain Management SOAP Note Subjective:: Patient is a pleasant 68-year-old female who presents today for follow-up of lumbar epidural steroid injection L4-L5 on 10/24/2023. Today she rates her pain a 0 out of 10 in the back and states that she has had 90 to 100% relief. She does however state that her pain in her right hip is an 8 out of 10. Patient denies any new trauma or injury. She does state that it does hurt all along the hip and does feel deep and goes into her right groin. Patient does state that she has recently had x-ray imaging that had no specific findings and that Dr. Hernandez's office was going to proceed forward with ordering a CT or a MRI. Patient states that they were thinking a lot of it could be arthritis. Patient does state the pain is a constant aching, throbbing sensation that is worse with increased activity or ambulation. She does state it interferes with her ability to perform activities of daily living such as cooking and cleaning. Patient is interested in any help we may be able to provide. She does state that her PCP did order her a arthritis medication. Her Patrick has been reviewed and is appropriate. Review of Systems: General: No recent weight changes, no fever, no sleep disturbances Respiratory: No cough, no shortness of air, no recurring pulmonary infections Cardiovascular/peripheral vascular: No chest pain, no palpitations, no edema, no shortness of breath Gastrointestinal: No new onset incontinence, normal bowel movements reported Genitourinary: No new onset incontinence Musculoskeletal: Right hip pain Psychiatric: [Normal mood/affect] Neurological: [Denies weakness in extremities], [denies balance issues] Objective:: Physical Exam: General: Alert and oriented x3, no acute distress, pleasant and cooperative Lungs: Respirations even and unlabored, symmetrical chest expansion Eyes: PERRL Musculoskeletal: Flexion and extension of right hip somewhat guarded secondary to pain, [antalgic gait noted] Neurological: Speech clear, no gross sensory deficit Assessment:: Degenerative disc disease of lumbar spine with lumbar radiculopathy symptoms, right leg pain, right hip pain Plan:: Patient is experiencing worsening pain in her right hip with limited range of motion. I have discussed with the patient that she may benefit from a right hip intra-articular injection. Risk and benefits were discussed with the patient and she would like to proceed forward with this plan of care. I we will also order the patient a compounded cream. Patient has tried and failed conservative therapy including continued at home stretching exercise in between injections. We will schedule the patient for a right hip intra-articular injection under fluoroscopy. Patient has been instructed to contact the clinic with any concerns before the next appointment. Dr. Wilder has reviewed this note and agrees with this plan of care. This note was dictated using voice recognition software and make contain errors or omissions. [facility] Disclaimer: The information contained in this section may have been updated after the patient was seen, as this information can be updated by other users. Medical History Anxiety Surgical History H/O section H/O wrist surgery Hx of tonsillectomy Family History Other No significant family history Social History Smoking Status: Never smoker alcohol intake: never substance use type: denies use current occupational status: other Travel in the last 8 weeks: None household members: family housing: house
[2023-11-08 14:52] VITALS: BP 133/76; PULSE 73; RESP 16; O2SAT 96; BMI 26.7
== END 2023-11-08 23:59 | disposition home or self-care (01) ==
LOC: SC.PAIN 14:19
PROVIDERS: PCP Internal Medicine; Visit Provider Nurse Practitioner Family
DX: M51.16 Intervertebral disc disorders with radiculopathy, lumbar region (principal); M79.604 Pain in right leg; M25.551 Pain in right hip
CPT/HCPCS: 99212; G0463

== ENCOUNTER 2023-11-22 14:06 | Outpatient (CLI) | payer MEDICARE, OTHER, MEDICAID, SELFPAY ==
--- NOTE | 2023-11-22 14:06 | MR_ITS ---
FINAL REPORT CLINICAL HISTORY: right hip pain. PAIN WHEN WALKING AND GOING UP STEPS. NO INJURY OR TRAUMA. FINDINGS: MR RIGHT HIP TECHNIQUE: Multiplanar MR without gadolinium enhancement. FINDINGS: ARTICULAR CARTILAGE: No focal defects. MARROW SIGNAL: Normal. JOINT FLUID: Physiologic quantity. ADJACENT SOFT TISSUES: Edema overlies the bilateral greater trochanters, left greater than right compatible with trochanteric bursitis. IMPRESSION: No occult fracture. No obvious soft tissue abnormality aside from the trochanteric bursitis. Reviewed, Interpreted and Dictated by Jude Romero MD Transcribed by Jess Fernandez Authenticated and [facility]
== END 2023-11-22 23:59 | disposition home or self-care (01) ==
LOC: RAD 14:06
PROVIDERS: PCP Internal Medicine; Visit Provider Internal Medicine
DX: M25.551 Pain in right hip (principal)
CPT/HCPCS: 73721

== ENCOUNTER 2023-12-05 08:39 | Day surgery (SDC) | payer MEDICARE, OTHER, MEDICAID, SELFPAY ==
[2023-12-05 08:56] VITALS: BP 148/74; PULSE 64; RESP 18; TEMP 36.4; O2SAT 96; BMI 26.9
[2023-12-05] MEDS: BUPIVACAINE 0.25% 10ML INJ 25 MG IJ (09:09)
[2023-12-05 09:10] VITALS: BP 161/68; PULSE 63; RESP 18; O2SAT 98
[2023-12-05] MEDS: methylPREDNISolone ACETATE 80MG/ML VIAL 80 MG (09:10)
[2023-12-05] MEDS: LIDOCAINE 1% 5ML PF VIAL 5 ML (09:10)
[2023-12-05 09:12] VITALS: BP 161/68; PULSE 64; RESP 18; O2SAT 98
[2023-12-05 09:22] VITALS: BP 148/69; PULSE 60; RESP 18; O2SAT 98
--- NOTE | 2023-12-05 09:24 | P.PCN_ITS ---
Procedure Date: 12/05/23 Time: 09:00 Anesthesiologist:: Stef Durham CRNA Complications:: None Pre-procedure Diagnosis:: DJD right hip. Chronic right hip pain. Post-procedure Diagnosis:: Same. Indications for Procedure:: Patient is a pleasant 68-year-old female comes our clinic today for right intra- articular hip injection of cortisone. Patient describes right hip pain as constant, dull, aching. Standing or ambulation is painful. She rates the pain 7/10. Procedure Details:: Details of the procedure were explained to the patient. The patient was taken to procedure room placed in the supine position. The area over the right hip w as cleaned using chlorhexidine as a cleansing solution. Using fluoroscopy guidance a 3 and half inch 22-gauge spinal needle was used to access the right hip joint without difficulty. After negative aspiration 3 cc of 1% lidocaine +3 cc of 0.25% Marcaine and 40 mg of Depo-Medrol was injected. Needle was withdrawn. Band-Aid applied. Patient tolerated procedure without difficulty. There are no complications. Plan and Disposition:: Patient was discharged without incident.
== END 2023-12-05 09:23 | disposition home or self-care (01) ==
LOC: SC.PAINP 08:40
PROVIDERS: PCP Internal Medicine; Visit Provider Nurse Anesthetist, Certified Registered
DX: M25.551 Pain in right hip (principal); M16.11 Unilateral primary osteoarthritis, right hip
CPT/HCPCS: 20610; 77002; J1010

== ENCOUNTER 2023-12-28 10:16 | Outpatient (POV) | payer MEDICARE, OTHER, MEDICAID, SELFPAY ==
[2023-12-28 10:17] VITALS: BP 142/70; PULSE 56; RESP 18; O2SAT 99; BMI 26.9
--- NOTE | 2023-12-28 10:47 | EXP.PAIN.SOA ---
[facility] Disclaimer: The information contained in this section may have been updated after the patient was seen, as this information can be updated by other users. Medical History Anxiety Surgical History H/O section H/O wrist surgery Hx of tonsillectomy Family History Other No significant family history Social History (Updated 12/28/23 @ 10:31 by Khushi Wang RN) Smoking Status: Never smoker alcohol intake: current alcohol intake frequency: holidays/special occasions only substance use type: denies use current occupational status: other Travel in the last 8 weeks: None household members: family housing: house PM Subjective & Objective Subjective Subjective:: Patient is a pleasant 68-year-old female who presents today for follow-up of right intra-articular hip injection on 12/05/2023. Today she rates her pain a 2 out of 10. Patient denies any new trauma or injury. She does state that she has had at least 80% improvement following this injection and feels like it is working well. Patient states that she continues to be able to do more and have overall improved function. Patient did previously have a lumbar epidural of L4-L5 back on October 23 that did provide 90 to 100% relief and she states this is still helping as well. Her Patrick has been reviewed and is appropriate. Review of Systems: General: No recent weight changes, no fever, no sleep disturbances Respiratory: No cough, no shortness of air, no recurring pulmonary infections Cardiovascular/peripheral vascular: No chest pain, no palpitations, no edema, no shortness of breath Gastrointestinal: No new onset incontinence, normal bowel movements reported Genitourinary: No new onset incontinence Musculoskeletal: Low back pain Psychiatric: [Normal mood/affect] Neurological: [Denies weakness in extremities], [denies balance issues] Pain at rest (0-10 scale): 2 Objective Objective:: Physical Exam: General: Alert and oriented x3, no acute distress, pleasant and cooperative Lungs: Respirations even and unlabored, symmetrical chest expansion Eyes: PERRL Musculoskeletal: Flexion and extension of lumbar [spine] somewhat guarded secondary to pain, [antalgic gait noted] Neurological: Speech clear, no gross sensory deficit Has patient had previous pain injection?: Yes Percent improvement in pain since last injection: 80% Conservative treatment options previously tried: Home exercise plan Length of treatment: Longer than 6 weeks Meds Home Medications and Allergies Home Medications ?Medication ?Instructions ?Recorded ?Confirmed ?Type venlafaxine 150 mg 150 mg PO DAILY MOOD #30 caps 01/24/19 12/28/23 History capsule,extended release 24 hr fluticasone propionate 50 1 spr NS DAILY ALLERGIES 07/08/22 12/28/23 History mcg/actuation nasal spray,suspension meloxicam 15 mg tablet 15 mg PO DAILY #30 tabs 09/13/23 12/28/23 Rx New Prescriptions to Start Prescriptions: Allergies Allergy/AdvReac Type Severity Reaction Status Date / Time No Known Allergies Allergy Verified 12/05/23 08:46 Assessment and Plan *Assessment and plan (1) DDD (degenerative disc disease), lumbar: Status: Acute Category: Medical Code(s): M51.36 - Other intervertebral disc degeneration, lumbar region Plan Patient has had significant improvement following her hip injection and is still getting relief from her last lumbar epidural. Patient will return to clinic in 2 months for reevaluation of symptoms and plan of care. Patient has been instructed to contact the clinic with any concerns before the next appointment. Dr. Wilder has reviewed this note and agrees with this plan of care. This note was dictated using voice recognition software and make contain errors or omissions. All injections are used with Lidocaine or Bupivacaine and Depo Medrol.
== END 2023-12-28 23:59 | disposition home or self-care (01) ==
LOC: SC.PAIN 10:16
PROVIDERS: PCP Internal Medicine; Visit Provider Nurse Practitioner Family
DX: M51.36 Other intervertebral disc degeneration, lumbar region (principal)
CPT/HCPCS: 99212; G0463

== ENCOUNTER 2024-01-15 15:49 | Outpatient (CLI) | payer MEDICARE, OTHER, MEDICAID, SELFPAY ==
[2024-01-15 14:41] LABS: Alanine Aminotransferase 28 U/L (12-78); Albumin/Globulin Ratio 1.6 (1.1-1.8); Alkaline Phosphatase 61 U/L (38-126); Anion Gap 8.4 mEq/L (5-15); Aspartate Amino Transferase 26 U/L (14-36); Bilirubin,Total 0.5 mg/dl (0.2-1.3); Blood Urea Nitrogen 17 mg/dl (7-17); Calcium 9.2 mg/dl (8.4-10.2); Carbon Dioxide 29 mmol/L (22.0-30.0); Chloride 106 mmol/L (98-107); Chol/HDL Ratio 2.2 (1-3.5); Cholesterol 228 mg/dl (140-200); Estimated Glomerular Filt Rate 83 ml/min (>60); GFR (African American) 101 ML/MIN (>60); Globulin 2.5 g/dL (1.3-3.2); Glucose 100 mg/dl (74-100); HDL Cholesterol 105 mg/dl (40-60); Potassium 4.4 mmoL/L (3.5-5.1); Sodium 139 mmol/L (136-145); Total Protein,Serum 6.5 g/dl (6.3-8.2); Triglycerides 153 mg/dl (30-150); VLDL Cholesterol 31 mg/dL (0-40)
[2024-01-15 14:53] LABS: Direct LDL Cholesterol 72.55 mg/dL (100-129)
[2024-01-15 15:14] LABS: Thyroid Stimulating Hormone 6.16 uIU/mL (0.465-4.68)
== END 2024-01-15 23:59 | disposition home or self-care (01) ==
LOC: LAB.DROPOF 15:50
PROVIDERS: PCP Internal Medicine; Visit Provider Internal Medicine
DX: E78.5 Hyperlipidemia, unspecified (principal); Z51.81 Encounter for therapeutic drug level monitoring; Z79.1 Long term (current) use of non-steroidal anti-inflammatories (NSAID); M47.27 Other spondylosis with radiculopathy, lumbosacral region; M15.0 Primary generalized (osteo)arthritis; F32.5 Major depressive disorder, single episode, in full remission; F41.9 Anxiety disorder, unspecified; E03.9 Hypothyroidism, unspecified
CPT/HCPCS: 80053; 80061; 84443

== ENCOUNTER 2024-02-28 08:42 | Outpatient (POV) | payer MEDICARE, OTHER, MEDICAID, SELFPAY ==
[2024-02-28 08:59] VITALS: BP 136/72; PULSE 66; RESP 16; O2SAT 97; BMI 27.1
--- NOTE | 2024-02-28 09:17 | EXP.PAIN.SOA ---
[facility] Disclaimer: The information contained in this section may have been updated after the patient was seen, as this information can be updated by other users. Medical History Anxiety Surgical History H/O wrist surgery LEFT WRIST TO REMOVE CYST. H/O section Hx of tonsillectomy Family History Other No significant family history Social History Smoking Status: Never smoker alcohol intake: current alcohol intake frequency: holidays/special occasions only substance use type: denies use current occupational status: other Travel in the last 8 weeks: None household members: family housing: house PM Subjective & Objective Subjective Subjective:: Patient is a pleasant 68-year-old female who presents today for worsening pain. Today she rates her pain an 8 out of 10. Patient denies any new injury or trauma. She does state that she is having worsening symptoms of the low back pain that does send sharp shooting pains down her entire right extremity to the foot. Patient states that it is fairly constant and has been over the last couple weeks to a month. Patient states the pain does interfere with her ability to perform activities of daily living such as cooking and cleaning. Patient has continued to do conservative treatment including continued at home stretching exercises for longer than 12 weeks between injections. Patient did previously have a lumbar epidural back on October 23 that did provide 90 to 100% relief lasting more than 2 to 3 months. Patient did have improved function with this and would like to proceed forward with repeat injection. Patient before that even has tried the right transforaminal epidural and it did provide more than 50% relief however the lumbar epidural did do better overall. Her Patrick has been reviewed and is appropriate. Review of Systems: General: No recent weight changes, no fever, no sleep disturbances Respiratory: No cough, no shortness of air, no recurring pulmonary infections Cardiovascular/peripheral vascular: No chest pain, no palpitations, no edema, no shortness of breath Gastrointestinal: No new onset incontinence, normal bowel movements reported Genitourinary: No new onset incontinence Musculoskeletal: Low back pain, right leg pain Psychiatric: [Normal mood/affect] Neurological: [Denies weakness in extremities], [denies balance issues] Pain at rest (0-10 scale): 8 Objective Objective:: Physical Exam: General: Alert and oriented x3, no acute distress, pleasant and cooperative Lungs: Respirations even and unlabored, symmetrical chest expansion Eyes: PERRL Musculoskeletal: Flexion and extension of lumbar [spine] somewhat guarded secondary to pain, [antalgic gait noted] Neurological: Speech clear, no gross sensory deficit Has patient had previous pain injection?: No Conservative treatment options previously tried: Home exercise plan Length of treatment: Longer than 12 weeks Meds Home Medications and Allergies Home Medications ?Medication ?Instructions ?Recorded ?Confirmed ?Type venlafaxine 150 mg 150 mg PO DAILY MOOD #30 caps 01/24/19 02/28/24 History capsule,extended release 24 hr atorvastatin 20 mg tablet 20 mg PO DAILY #90 tabs 01/15/24 02/28/24 Rx desvenlafaxine succinate 50 mg 50 mg PO ONCE #90 tabs 01/15/24 02/28/24 Rx tablet,extended release 24 hr diclofenac sodium 75 mg 75 mg PO BID #60 tabs 01/15/24 02/28/24 Rx tablet,delayed release gabapentin 300 mg capsule 300 mg PO HS Leg cramps #30 caps 01/15/24 02/28/24 Rx levothyroxine 88 mcg capsule 88 mcg PO DAILY #90 caps 01/15/24 02/28/24 Rx meloxicam 15 mg tablet 15 mg PO DAILY #30 tabs 01/15/24 02/28/24 Rx quetiapine 25 mg tablet 25 mg PO DAILY #90 tabs 01/15/24 02/28/24 Rx New Prescriptions to Start Prescriptions: Allergies Allergy/AdvReac Type Severity Reaction Status Date / Time No Known Allergies Allergy Verified 02/28/24 09:01 Assessment and Plan *Assessment and plan (1) DDD (degenerative disc disease), lumbar: Status: Acute Category: Medical Code(s): M51.36 - Other intervertebral disc degeneration, lumbar region (2) Lumbar radiculopathy: Status: Acute Category: Medical Code(s): M54.16 - Radiculopathy, lumbar region Plan Patient is experiencing worsening pain throughout her low back that does radiate down her entire right extremity with sharp shooting tingling sensations. Patient was counseled that she may benefit from a repeat lumbar epidural steroid injection. Risk and benefits were discussed with the patient and she would like to proceed forward with this plan of care. Patient has tried and failed conservative therapy including continued at home stretching exercise for longer than 12 weeks. Patient has had these injections in the past that did provide more than 90 to 100% relief lasting 2 to 3 months with her last 1 in October. Patient will be scheduled for a LESI L4-L5 under fluoroscopy. Patient has been instructed to contact the clinic with any concerns before the next appointment. Dr. Wilder has reviewed this note and agrees with this plan of care. This note was dictated using voice recognition software and make contain errors or omissions. All injections are used with Lidocaine or Bupivacaine and Depo Medrol.
== END 2024-02-28 23:59 | disposition home or self-care (01) ==
LOC: SC.PAIN 08:43
PROVIDERS: PCP Internal Medicine; Visit Provider Nurse Practitioner Family
DX: M51.16 Intervertebral disc disorders with radiculopathy, lumbar region (principal); Z73.89 Other problems related to life management difficulty
CPT/HCPCS: 99212; G0463

== ENCOUNTER 2024-03-19 11:08 | Day surgery (SDC) | payer MEDICARE, OTHER, MEDICAID, SELFPAY ==
[2024-03-19 11:15] VITALS: BP 135/68; PULSE 58; RESP 16; O2SAT 96; BMI 27.4
[2024-03-19 11:23] VITALS: BP 159/63; PULSE 57; PULSE 60; RESP 18; O2SAT 96
[2024-03-19] MEDS: methylPREDNISolone ACETATE 80MG/ML VIAL 80 MG (11:24)
--- NOTE | 2024-03-19 11:31 | P.PCN_ITS ---
Procedure Date: 03/19/24 Time: 11:20 Anesthesiologist:: Stef Durham CRNA Complications:: None Pre-procedure Diagnosis:: Degenerative disc lumbar spine multilevels. Lumbar radiculopathy. Lumbar spondylosis. Post-procedure Diagnosis:: Same. Indications for Procedure:: Patient is a very pleasant 68-year-old female who comes our clinic today for lumbar epidural steroid injections L4-5 level. Patient describes low back pain as constant, dull, aching. Patient also reports bilateral hip and leg radicular symptoms at times. She rates her pain 7/10. Procedure Details:: Procedure: Lumbar epidural steroid injection under fluoroscopy Informed consent was obtained and the risks and benefits of the procedure were explained to the patient. The patient was taken to the procedure room and noninvasive monitors placed, including noninvasive blood pressure cuff and pulse oximeter. The back was viewed using C-arm Fluoroscopy and prepped using Chloraprep as a cleansing solution and the L4-L5 interspace was palpated. Skin and subcutaneous tissues were anesthetized using lidocaine 1.5% and a 25-gauge needle. After this, an 18-gauge Touhy epidural needle was placed into the L4-L5 interspace and advanced using fluoroscopic guidance and loss of resistance to air until the epidural space was encountered. After confirmation of needle placement in the epidural space, with dye, a solution containing normal saline, 3 mL and Depo-Medrol 80 mg were incrementally injected into the lumbar epidural space. The patient tolerated the procedure well with no complications. The patient was observed in the Pain Clinic and then discharged home neurolo gically intact. Plan and Disposition:: Patient was discharged without incident.
[2024-03-19 11:34] VITALS: BP 147/70; PULSE 57; RESP 16; O2SAT 98
== END 2024-03-19 11:34 | disposition home or self-care (01) ==
PROVIDERS: PCP Internal Medicine; Visit Provider Nurse Anesthetist, Certified Registered
DX: M51.16 Intervertebral disc disorders with radiculopathy, lumbar region (principal); M47.26 Other spondylosis with radiculopathy, lumbar region
CPT/HCPCS: 62323; J1010

== ENCOUNTER 2024-04-15 10:26 | Outpatient (POV) | payer MEDICARE, OTHER, MEDICAID, SELFPAY ==
--- NOTE | 2024-04-15 10:33 | A.OFFVIS_ITS ---
[facility] Disclaimer: The information contained in this section may have been updated after the patient was seen, as this information can be updated by other users. Medical History Anxiety Surgical History H/O wrist surgery LEFT WRIST TO REMOVE CYST. H/O section Hx of tonsillectomy Family History Other No significant family history Social History Smoking Status: Never smoker alcohol intake: current alcohol intake frequency: holidays/special occasions only substance use type: denies use current occupational status: other Travel in the last 8 weeks: None household members: family housing: house PM Subjective & Objective Subjective Subjective:: Patient is a pleasant 68-year-old female who presents today for follow-up of a lumbar epidural steroid injection L4-L5 on 03/19/2024. Today she rates her pain a 5 out of 10. She denies any new trauma or injury. She does state that this injection did provide at least 50% improvement and has really been helping. She does however state that she has been having a sharp stabbing sensation all across her right low back/hip area. She states this is constant and is interfering with her ability perform activities of daily living such as cooking and cleaning. Patient states that it is worse going up and down stairs. Patient has been doing home renovations and states that they are moved into the basement currently while they are remodeling upstairs. She states this has seemed to aggravate this pain. She states it has been going on for months.She is prescribed gabapentin from Dr. Hernandez's office and compounded cream from our office. She denies any side effects. Her Patrick has been reviewed and is appropriate. Review of Systems: General: No recent weight changes, no fever, no sleep disturbances Respiratory: No cough, no shortness of air, no recurring pulmonary infections Cardiovascular/peripheral vascular: No chest pain, no palpitations, no edema, no shortness of breath Gastrointestinal: No new onset incontinence, normal bowel movements reported Genitourinary: No new onset incontinence Musculoskeletal: Low back, right hip pain Psychiatric: [Normal mood/affect] Neurological: [Denies weakness in extremities], [denies balance issues] Pain at rest (0-10 scale): 5 Objective Objective:: Physical Exam: General: Alert and oriented x3, no acute distress, pleasant and cooperative Lungs: Respirations even and unlabored, symmetrical chest expansion Eyes: PERRL Musculoskeletal: Flexion and extension of lumbar [spine] somewhat guarded secondary to pain, [antalgic gait noted] point tenderness along right SI with positive right Henry's, Colleen's, Gaenslen's, compression and distraction exam Neurological: Speech clear, no gross sensory deficit Has patient had previous pain injection?: Yes Percent improvement in pain since last injection: 50% Conservative treatment options previously tried: Home exercise plan Length of treatment: Longer than 12 weeks Meds Home Medications and Allergies Home Medications ?Medication ?Instructions ?Recorded ?Confirmed ?Type venlafaxine 150 mg 150 mg PO DAILY MOOD #30 caps 01/24/19 04/15/24 History capsule,extended release 24 hr atorvastatin 20 mg tablet 20 mg PO DAILY #90 tabs 01/15/24 04/15/24 Rx desvenlafaxine succinate 50 mg 50 mg PO ONCE #90 tabs 01/15/24 04/15/24 Rx tablet,extended release 24 hr diclofenac sodium 75 mg 75 mg PO BID #60 tabs 01/15/24 04/15/24 Rx tablet,delayed release gabapentin 300 mg capsule 300 mg PO HS Leg cramps #30 caps 01/15/24 04/15/24 Rx levothyroxine 88 mcg capsule 88 mcg PO DAILY #90 caps 01/15/24 04/15/24 Rx meloxicam 15 mg tablet 15 mg PO DAILY #30 tabs 01/15/24 04/15/24 Rx quetiapine 25 mg tablet 25 mg PO DAILY #90 tabs 01/15/24 04/15/24 Rx New Prescriptions to Start Prescriptions: Allergies Allergy/AdvReac Type Severity Reaction Status Date / Time No Known Allergies Allergy Verified 02/28/24 09:01 Assessment and Plan *Assessment and plan (1) Lumbar radiculopathy: Status: Acute Category: Medical Code(s): M54.16 - Radiculopathy, lumbar region (2) DDD (degenerative disc disease), lumbar: Status: Acute Category: Medical Code(s): M51.36 - Other intervertebral disc degeneration, lumbar region (3) Sacroiliac inflammation: Status: Acute Category: Medical Code(s): M46.1 - Sacroiliitis, not elsewhere classified Plan Patient is experiencing worsening pain in her low back and right hip. Patient did have point tenderness along her right SI with a positive right Henry's, Colleen's, Gaenslen's, compression and distraction exam. I did discuss with the patient that I do believe she would benefit from a right SI injection. Risk and benefits were discussed with the patient and she would like to proceed forward with this plan of care. Patient has tried and failed conservative therapy including continued at home stretching exercise for longer than 12 weeks. Patient has not had this injection in the past. Patient will be scheduled for a right SI injection under fluoroscopy. This pain has been going on for longer than 3 months. Patient has been instructed to contact the clinic with any concerns before the next appointment. Dr. Wilder has reviewed this note and agrees with this plan of care. This note was dictated using voice recognition software and make contain errors or omissions. All injections are used with Lidocaine or Bupivacaine and Depo Medrol.
[2024-04-15 11:13] VITALS: BP 135/63; PULSE 63; RESP 16; O2SAT 97; BMI 27.1
== END 2024-04-15 23:59 | disposition home or self-care (01) ==
LOC: SC.PAIN 10:27
PROVIDERS: PCP Internal Medicine; Visit Provider Nurse Practitioner Family
DX: M46.1 Sacroiliitis, not elsewhere classified; M51.16 Intervertebral disc disorders with radiculopathy, lumbar region; Z73.89 Other problems related to life management difficulty
CPT/HCPCS: 99212; G0463

== ENCOUNTER 2024-05-14 10:39 | Day surgery (SDC) | payer MEDICARE, OTHER, MEDICAID, SELFPAY ==
[2024-05-14 10:52] VITALS: BP 131/62; PULSE 53; RESP 16; TEMP 36.3; O2SAT 96; BMI 27.1
[2024-05-14] MEDS: BUPIVACAINE 0.25% 10ML INJ 25 MG IJ (11:02)
[2024-05-14] MEDS: methylPREDNISolone ACETATE 80MG/ML VIAL 80 MG (11:02)
[2024-05-14] MEDS: LIDOCAINE 1% 5ML PF VIAL 5 ML (11:02)
[2024-05-14 11:08] VITALS: BP 151/67; PULSE 65; RESP 18; O2SAT 97
[2024-05-14 11:09] VITALS: BP 151/67; PULSE 65; RESP 18; O2SAT 97
[2024-05-14 11:14] VITALS: BP 94/75; PULSE 63; RESP 16; TEMP 36.4; O2SAT 95
--- NOTE | 2024-05-14 11:18 | EXP.PAIN.PRO ---
Procedure Date: 05/14/24 Time: 11:00 Anesthesiologist:: Stef uDrham CRNA Complications:: None Pre-procedure Diagnosis:: Right sacroiliitis Post-procedure Diagnosis:: Same Indications for Procedure:: Patient is a pleasant 68-year-old female who comes our clinic today for right sacroiliac joint injection of cortisone and local anesthetic. Patient describes right low lumbar back pain is constant, dull, sharp, stabbing. Patient also reports right posterior hip pain. Some right anterior thigh radicular symptoms. She rates her pain 8/10. She describes ambulation is difficult due to the pain. Transitioning from sitting to standing is extremely difficult. Procedure Details:: Procedure: Right sacroliliac joint injection under fluoroscopy Informed consent was obtained and the risk and benefits of the procedure were explained to the patient.~ The patient was taken to the procedure room and noninvasive monitors were placed including noninvasive blood pressure cuff and pulse oximeter.~ The patient was placed prone on the procedure table.~ The~ right hip was cleansed using Betadine as a cleansing solution.~ C-arm fluorosocpy was used to view the right SI joint.~ The skin and subcutaneous tissues were anesthetized using Lidocaine 1.5% and a 25-gauge needle.~ After this, a 22-gauge spinal needle was inserted under fluoroscopic guidance into the inferior aspect of the right SI joint.~ Omnipaque dye was injected and a good spread was seen throughout the joint.~ After this, approximately 5 mL of bupivacaine 0.25% and Depo-Medrol 40 mg was incrementally injected into the sacroiliac joint.~ The patient tolerated the procedure well with no complications.~ The patient was observed in the Pain Clinic, then discharged home neurologically intact.~ Plan and Disposition:: Patient was discharged without incident.
== END 2024-05-14 11:15 | disposition home or self-care (01) ==
LOC: SC.PAINP 10:40
PROVIDERS: PCP Internal Medicine; Visit Provider Nurse Anesthetist, Certified Registered
DX: M46.1 Sacroiliitis, not elsewhere classified (principal)
CPT/HCPCS: 27096; G0260; J1010

== ENCOUNTER 2024-06-07 13:52 | Outpatient (POV) | payer MEDICARE, OTHER, MEDICAID, SELFPAY ==
[2024-06-07 14:44] VITALS: BP 126/65; PULSE 67; RESP 16; TEMP 36.8; O2SAT 96; BMI 27.1
--- NOTE | 2024-06-07 15:30 | EXP.PAIN.SOA ---
[facility] Disclaimer: The information contained in this section may have been updated after the patient was seen, as this information can be updated by other users. Medical History Anxiety Surgical History H/O wrist surgery LEFT WRIST TO REMOVE CYST. H/O section Hx of tonsillectomy Family History Other No significant family history Social History Smoking Status: Never smoker alcohol intake: current alcohol intake frequency: holidays/special occasions only substance use type: denies use current occupational status: other Travel in the last 8 weeks: None household members: family housing: house PM Subjective & Objective Subjective Subjective:: Patient is a pleasant 68-year-old female who presents today for follow-up of right SI injection on 05/14/2024. She does state that she had at least 80% improvement following this injection and feels like it is not as severe. She does rate her pain today a 4 or 5 out of 10 and denies any new falls or injuries. She does state that she feels like her epidural has officially worn off. She is experiencing more pain that does radiate down her entire right extremity. She describes it as an aching, throbbing sensation with numbness and tingling. She does state that she is still having difficulty performing activities of daily living such as cooking and cleaning. She did complete her remodeling project at home so it should not aggravate her pain as much however she would like to go ahead and see about getting scheduled for her repeat epidural. Her Patrick has been reviewed and is appropriate. Review of Systems: General: No recent weight changes, no fever, no sleep disturbances Respiratory: No cough, no shortness of air, no recurring pulmonary infections Cardiovascular/peripheral vascular: No chest pain, no palpitations, no edema, no shortness of breath Gastrointestinal: No new onset incontinence, normal bowel movements reported Genitourinary: No new onset incontinence Musculoskeletal: Low back pain, right leg pain Psychiatric: [Normal mood/affect] Neurological: [Denies weakness in extremities], [denies balance issues] Pain at rest (0-10 scale): 5 Objective Objective:: Physical Exam: General: Alert and oriented x3, no acute distress, pleasant and cooperative Lungs: Respirations even and unlabored, symmetrical chest expansion Eyes: PERRL Musculoskeletal: Flexion and extension of lumbar [spine] somewhat guarded secondary to pain, [antalgic gait noted] positive leg raise Neurological: Speech clear, no gross sensory deficit Has patient had previous pain injection?: Yes Percent improvement in pain since last injection: 80% Conservative treatment options previously tried: Home exercise plan Length of treatment: Longer than 12 weeks Meds Home Medications and Allergies Home Medications ?Medication ?Instructions ?Recorded ?Confirmed ?Type venlafaxine 150 mg 150 mg PO DAILY MOOD #30 caps 01/24/19 06/07/24 History capsule,extended release 24 hr atorvastatin 20 mg tablet 20 mg PO DAILY #90 tabs 01/15/24 06/07/24 Rx desvenlafaxine succinate 50 mg 50 mg PO ONCE #90 tabs 01/15/24 06/07/24 Rx tablet,extended release 24 hr diclofenac sodium 75 mg 75 mg PO BID #60 tabs 01/15/24 06/07/24 Rx tablet,delayed release gabapentin 300 mg capsule 300 mg PO HS Leg cramps #30 caps 01/15/24 06/07/24 Rx levothyroxine 88 mcg capsule 88 mcg PO DAILY #90 caps 01/15/24 06/07/24 Rx quetiapine 25 mg tablet 25 mg PO DAILY #90 tabs 01/15/24 06/07/24 Rx meloxicam 15 mg tablet See Rx Instructions .Route 04/25/24 06/07/24 Rx .COMPLEX #30 tabs New Prescriptions to Start Prescriptions: Allergies Allergy/AdvReac Type Severity Reaction Status Date / Time No Known Allergies Allergy Verified 02/28/24 09:01 Assessment and Plan *Assessment and plan (1) Lumbar radiculopathy: Status: Acute Category: Medical Code(s): M54.16 - Radiculopathy, lumbar region (2) DDD (degenerative disc disease), lumbar: Status: Acute Category: Medical Code(s): M51.369 - Other intervertebral disc degeneration, lumbar region without mention of lumbar back pain or lower extremity pain Plan Patient is experiencing worsening pain in her low back that does radiate down her entire right extremity with numbness and tingling. Patient did have limited range of motion and a positive leg raise during today's visit. Patient did previously have a lumbar epidural steroid injection back in March that did provide more than 50% improvements and has lasted up until the last week or so. Patient did have improved function with overall decreased pain. I did review over the risk and benefits of repeat epidural injection and she would like to proceed forward with this plan of care. Patient has tried and failed conservative treatment including oral medication, heat and ice, topicals, at home stretching exercise for longer than 12 weeks and in between injections. Patient will be scheduled for repeat LESI L4-L5 under fluoroscopy. Patient has been instructed to contact the clinic with any concerns before the next appointment. Dr. Wilder has reviewed this note and agrees with this plan of care. This note was dictated using voice recognition software and make contain errors or omissions. All injections are used with Lidocaine, Bupivacaine and Depo Medrol. Occasionally urine drug screen is needed to verify patient's compliance with our office pain contract. This is ordered based off specific treatments related to chronic pain with the potential to abuse certain medications.
== END 2024-06-07 23:59 | disposition home or self-care (01) ==
LOC: SC.PAIN 13:53
PROVIDERS: PCP Internal Medicine; Visit Provider Nurse Practitioner Family
DX: M51.16 Intervertebral disc disorders with radiculopathy, lumbar region (principal); Z73.89 Other problems related to life management difficulty
CPT/HCPCS: 99212; G0463

== ENCOUNTER 2024-07-02 10:20 | Day surgery (SDC) | payer MEDICARE, OTHER, MEDICAID, SELFPAY ==
[2024-07-02 11:07] VITALS: BP 127/69; PULSE 64; RESP 18; TEMP 36.8; O2SAT 97; BMI 27.1
[2024-07-02 11:30] VITALS: BP 128/76; PULSE 55; RESP 16; TEMP 36.8; O2SAT 100
--- NOTE | 2024-07-02 11:32 | EXP.PAIN.PRO ---
Procedure Date: 07/02/24 Time: 11:20 Anesthesiologist:: Stef Durham CRNA Complications:: None Pre-procedure Diagnosis:: Degenerative disc lumbar spine multilevels. Lumbar radiculopathy. Lumbar spondylosis. Multilevel lumbar facet arthropathy. Post-procedure Diagnosis:: Same. Indications for Procedure:: Patient is a very pleasant 68-year-old female comes our clinic today for lumbar epidural steroid injection. Patient reports responding very well to previous lumbar epidural steroid injections. She describes low lumbar back pain as well as bilateral hip and leg radicular symptoms at times. She rates her pain 7/10. Procedure Details:: Procedure: Lumbar epidural steroid injection under fluoroscopy Informed consent was obtained and the risks and benefits of the procedure were explained to the patient. The patient was taken to the procedure room and noninvasive monitors placed, including noninvasive blood pressure cuff and pulse oximeter. The back was viewed using C-arm Fluoroscopy and prepped using Chloraprep as a cleansing solution and the L4-L5 interspace was palpated. Skin and subcutaneous tissues were anesthetized using lidocaine 1.5% and a 25-gauge needle. After this, an 18-gauge Touhy epidural needle was placed into the L4-L5 interspace and advanced using fluoroscopic guidance and loss of resistance to air until the epidural space was encountered. After confirmation of needle placement in the epidural space, with dye, a solution containing normal saline, 3 mL and Depo-Medrol 80 mg were incrementally injected into the lumbar epidural space. The patient tolerated the procedure well with no complications. The patient was observed in the Pain Clinic and then discharged home neurologically intact. Plan and Disposition:: Patient was discharged without incident
[2024-07-02] MEDS: methylPREDNISolone ACETATE 80MG/ML VIAL 80 MG (13:45)
[2024-07-02 13:46] VITALS: BP 145/71; PULSE 63; RESP 18; O2SAT 96
== END 2024-07-02 11:30 | disposition home or self-care (01) ==
PROVIDERS: PCP Internal Medicine; Visit Provider Nurse Anesthetist, Certified Registered
DX: M51.16 Intervertebral disc disorders with radiculopathy, lumbar region (principal); M47.26 Other spondylosis with radiculopathy, lumbar region
CPT/HCPCS: 62323; J1010

== ENCOUNTER 2024-07-22 10:26 | Outpatient (POV) | payer MEDICARE, OTHER, MEDICAID, SELFPAY ==
[2024-07-22 10:48] VITALS: BP 112/69; PULSE 73; RESP 14; O2SAT 98; BMI 27.1
--- NOTE | 2024-07-22 10:53 | EXP.PAIN.SOA ---
[facility] Disclaimer: The information contained in this section may have been updated after the patient was seen, as this information can be updated by other users. Medical History Anxiety Surgical History H/O wrist surgery LEFT WRIST TO REMOVE CYST. H/O section Hx of tonsillectomy Family History Other No significant family history Social History (Updated 07/02/24 @ 11:07 by Shana Rodgers RN) Smoking Status: Never smoker alcohol intake: current alcohol intake frequency: holidays/special occasions only substance use type: denies use current occupational status: other Travel in the last 8 weeks: None household members: family housing: house PM Subjective & Objective Subjective Subjective:: Patient is a pleasant 68-year-old female who presents today for follow-up of lumbar epidural steroid injection L4-L5 on 07/02/2024. Today she rates her pain a 0 out of 10. She denies any new trauma or injury. She does state that she had 90% relief with this injection and feels like it is still working. Patient does state that he did take about 3 or 4 days to eventually kick in however it is doing so much better. She states the pain is not as severe and she has been able to do more. Patient states that occasionally the pain will go up with increased activity however it is nothing like what it was and she typically can stop and rest and it goes away. Her Patrick has been reviewed and is appropriate. Review of Systems: General: No recent weight changes, no fever, no sleep disturbances Respiratory: No cough, no shortness of air, no recurring pulmonary infections Cardiovascular/peripheral vascular: No chest pain, no palpitations, no edema, no shortness of breath Gastrointestinal: No new onset incontinence, normal bowel movements reported Genitourinary: No new onset incontinence Musculoskeletal: Low back pain Psychiatric: [Normal mood/affect] Neurological: [Denies weakness in extremities], [denies balance issues] Pain at rest (0-10 scale): 0 Objective Objective:: Physical Exam: General: Alert and oriented x3, no acute distress, pleasant and cooperative Lungs: Respirations even and unlabored, symmetrical chest expansion Eyes: PERRL Musculoskeletal: Flexion and extension of lumbar spine within normal limits Neurological: Speech clear, no gross sensory deficit Has patient had previous pain injection?: Yes Percent improvement in pain since last injection: 90% Conservative treatment options previously tried: Home exercise plan Length of treatment: Longer than 12 weeks Meds Home Medications and Allergies Home Medications ?Medication ?Instructions ?Recorded ?Confirmed ?Type venlafaxine 150 mg 150 mg PO DAILY MOOD #30 caps 01/24/19 07/02/24 History capsule,extended release 24 hr atorvastatin 20 mg tablet 20 mg PO DAILY #90 tabs 01/15/24 07/02/24 Rx desvenlafaxine succinate 50 mg 50 mg PO ONCE #90 tabs 01/15/24 07/02/24 Rx tablet,extended release 24 hr diclofenac sodium 75 mg 75 mg PO BID #60 tabs 01/15/24 07/02/24 Rx tablet,delayed release gabapentin 300 mg capsule 300 mg PO HS Leg cramps #30 caps 01/15/24 07/02/24 Rx levothyroxine 88 mcg capsule 88 mcg PO DAILY #90 caps 01/15/24 07/02/24 Rx quetiapine 25 mg tablet 25 mg PO DAILY #90 tabs 01/15/24 07/02/24 Rx meloxicam 15 mg tablet See Rx Instructions .Route 04/25/24 07/02/24 Rx .COMPLEX #30 tabs New Prescriptions to Start Prescriptions: Allergies Allergy/AdvReac Type Severity Reaction Status Date / Time No Known Allergies Allergy Verified 07/02/24 11:10 Assessment and Plan *Assessment and plan (1) Lumbar radiculopathy: Status: Acute Category: Medical Code(s): M54.16 - Radiculopathy, lumbar region (2) DDD (degenerative disc disease), lumbar: Status: Acute Category: Medical Code(s): M51.369 - Other intervertebral disc degeneration, lumbar region without mention of lumbar back pain or lower extremity pain Plan Patient has had significant improvement following her lumbar epidural and does not require any additional injection therapy at this time. Patient will return to clinic in 6 weeks for reevaluation of symptoms and plan of care. Patient has been instructed to contact the clinic with any concerns before the next appointment. Dr. Wilder has reviewed this note and agrees with this plan of care. This note was dictated using voice recognition software and make contain errors or omissions. All injections are used with Lidocaine, Bupivacaine and Depo Medrol. Occasionally urine drug screen is needed to verify patient's compliance with our office pain contract. This is ordered based off specific treatments related to chronic pain with the potential to abuse certain medications.
== END 2024-07-22 23:59 | disposition home or self-care (01) ==
LOC: SC.PAIN 10:29
PROVIDERS: PCP Internal Medicine; Visit Provider Nurse Practitioner Family
DX: M51.16 Intervertebral disc disorders with radiculopathy, lumbar region (principal)
CPT/HCPCS: 99212; G0463

== ENCOUNTER 2024-08-05 23:05 | Emergency (ER) | payer MEDICARE, OTHER, MEDICAID, SELFPAY ==
--- NOTE | 2024-08-05 23:03 | ECG_ITS ---
APPROVED REPORT Exam: Resting ECG HR:74 bpm ECG Measurements Heart Rate 74 AXES ND 154 P 66 QRSd 82 QRS 27 QT 389 T 68 QTc 417 Conclusion SINUS RHYTHM WITH SINUS ARRHYTHMIA LOW QRS VOLTAGE IN PRECORDIAL LEADS [QRS DEFLECTION < 1.0 mV IN CHEST LEADS] MINIMAL ST DEPRESSION [0.025+ mV ST DEPRESSION] BORDERLINE ECG UNCONFIRMED REPORT Electronically signed by : JANINA BRANTLEY, 08/08/2024 06:49:50
[2024-08-05 23:06] VITALS: BP 175/81; PULSE 65; RESP 20; TEMP 37.1; O2SAT 100; BMI 27.1
--- NOTE | 2024-08-05 23:08 | XR_ITS ---
PROCEDURE INFORMATION: Exam: XR Chest Exam date and time: 08/05/2024 11:16 PM Age: 69 years old Clinical indication: Pain; Chest pressure; Additional info: Cp back pain TECHNIQUE: Imaging protocol: Radiologic exam of the chest. Views: 1 view. COMPARISON: SHOULDER LT WO CON 10/04/2022 1:45 PM FINDINGS: Lungs: Unremarkable. No consolidation. Pleural spaces: Unremarkable. No pleural effusion. No pneumothorax. Heart/Mediastinum: Unremarkable. No cardiomegaly. Vasculature: Unremarkable. Bones/joints: Unremarkable. IMPRESSION: No acute findings.
--- NOTE | 2024-08-05 23:30 | HMH.EDGENADL ---
Discharge Plan Disposition Patient Disposition: Home, Self-Care Prescriptions Prescriptions: New methocarbamol 500 mg tablet 500 mg PO Q6H PRN (Reason: pain) Qty: 30 0RF lidocaine 5 % adhesive patch,medicated 1 patch topical DAILY PRN (Reason: pain) Qty: 30 0RF Rx Instructions: leave on most painful area for up to 12 hrs No Action venlafaxine 150 mg capsule,extended release 24hr 150 mg PO DAILY Qty: 30 Patient Comments: TAKE 1 CAPSULE BY MOUTH ONCE DAILY quetiapine 25 mg tablet 25 mg PO DAILY Qty: 90 1RF diclofenac sodium 75 mg tablet,delayed release (DR/EC) 75 mg PO BID Qty: 60 2RF gabapentin 300 mg capsule 300 mg PO HS Qty: 30 2RF meloxicam 15 mg tablet See Rx Instructions .ROUTE .COMPLEX Qty: 30 5RF Dose Instruction: Take 1 tablet by mouth once daily Rx Instructions: Take 1 tablet by mouth once daily desvenlafaxine succinate 50 mg tablet extended release 24 hr See Rx Instructions .ROUTE .COMPLEX Qty: 90 1RF Dose Instruction: TAKE 1 TABLET BY MOUTH ONCE DAILY Rx Instructions: TAKE 1 TABLET BY MOUTH ONCE DAILY atorvastatin 20 mg tablet See Rx Instructions .ROUTE .COMPLEX Qty: 90 1RF Dose Instruction: TAKE 1 TABLET BY MOUTH ONCE DAILY Rx Instructions: TAKE 1 TABLET BY MOUTH ONCE DAILY levothyroxine 88 mcg capsule 88 mcg PO DAILY Qty: 90 1RF Referrals Follow up/Referrals: Provider,Referral, MD [Primary Care Provider] - See instructions Activity Restrictions/Add. Instructions Additional Instructions/Restrictions: Please follow-up with your primary care provider. Please return to the emergency department if you develop any new or worsening symptoms or become concerned for your health. Clinical Impressions Clinical Impression: Chest pain Qualifiers: Chest pain type: precordial pain Qualified Code(s): R07.2 - Precordial pain Back pain Qualifiers: Back pain location: thoracic back pain Chronicity: acute Back pain laterality: midline Qualified Code(s): M54.6 - Pain in thoracic spine Print Language Print Language: Grenadian Discharge ED Provider: Stiven Comer Adult [facility] General Chief complaint: Chest Pain Stated complaint: Chest Pain Time Seen by Provider: 08/05/24 23:07 Mode of Arrival: Ambulatory Source of Information: Patient Description of Symptoms (Recalled from ER Triage Doc. by RN): pt reports chest pain that began two days ago but today the pain began radiating between the shoulder blades. pt denies SOB History of Present Illness HPI narrative: 69-year-old female with history of thyroid and depression presents for chest pain and back pain. She reports she has had chest pain/indigestion for the last couple of days. She started having back pain between her shoulder blades a few hours ago and reports that her blood pressures bit higher than normal. Up to 180 systolic at home. She denies any shortness of breath. Reports no cardiac history. Denies any abdominal pain. Took 181 mg aspirin prior to arrival. Related Data Home Medications ?Medication ?Instructions ?Recorded ?Confirmed venlafaxine 150 mg 150 mg PO DAILY MOOD #30 caps 01/24/19 07/22/24 capsule,extended release 24 hr Previous Rx's ?Medication ?Instructions ?Recorded diclofenac sodium 75 mg 75 mg PO BID #60 tabs 01/15/24 tablet,delayed release gabapentin 300 mg capsule 300 mg PO HS Leg cramps #30 caps 01/15/24 quetiapine 25 mg tablet 25 mg PO DAILY #90 tabs 01/15/24 meloxicam 15 mg tablet See Rx Instructions .Route 04/25/24 .COMPLEX #30 tabs atorvastatin 20 mg tablet See Rx Instructions .Route 07/24/24 .COMPLEX #90 tabs desvenlafaxine succinate 50 mg See Rx Instructions .Route 07/24/24 tablet,extended release 24 hr .COMPLEX #90 tabs levothyroxine 88 mcg capsule 88 mcg PO DAILY #90 caps 07/24/24 lidocaine 5 % topical patch 1 patch topical DAILY PRN pain #30 08/06/24 ea methocarbamol 500 mg tablet 500 mg PO Q6H PRN pain #30 tabs 08/06/24 Allergies Allergy/AdvReac Type Severity Reaction Status Date / Time No Known Allergies Allergy Verified 07/02/24 11:10 [facility] Disclaimer: The information contained in this section may have been updated after the patient was seen, as this information can be updated by other users. Medical History Anxiety Surgical History H/O wrist surgery LEFT WRIST TO REMOVE CYST. H/O section Hx of tonsillectomy Family History Other No significant family history Social History Smoking Status: Unknown if ever smoked alcohol intake: current alcohol intake frequency: holidays/special occasions only substance use type: denies use current occupational status: other Travel in the last 8 weeks: None household members: family housing: house Other Medical History Have you received the Flu Vaccine for this season: No Have you received the Pneumonia Vaccine: No ROS Obtained: Yes All systems reviewed & no additional complaints except as documented Physical Exam General General appearance: alert and in no apparent distress Head Head exam: atraumatic and normocephalic Eye Eye exam: Present normal appearance, PERRL and EOMI ENT ENT exam: Present normal oropharynx and normal external ear exam Neck Neck exam: Present normal inspection and full ROM Chest Chest inspection: Present normal inspection and symmetric chest wall rise; Absent tenderness Respiratory Respiratory exam: Present normal lung sounds bilaterally; Absent respiratory distress Cardiovascular Cardiovascular exam: Present regular rate and normal rhythm Abdominal Exam Abdominal exam: Present soft; Absent distention, tenderness or guarding Extremities Exam Extremities exam: Present normal inspection; Absent edema or joint swelling Back Exam Back exam: Present normal inspection; Absent tenderness Neurological Exam Neurological exam: Present alert and oriented X3; Absent motor sensory deficit Psychiatric Psychiatric exam: Present normal affect and normal mood Skin Skin exam: Present warm, dry and normal color Lymphatic Lymphatic Findings: no adenopathy Medical Decision Making Medical Records Medical records reviewed: Yes I reviewed the patient's medical records. Screening: Per USPSTF and CDC recommendations, given the prevalence of disease in our region, it is our hospital?s policy to screen for HIV and viral Hepatitis for all patients aged 18 and over and those with ongoing risk factors. Patrick Inquiry Pt receiving controlled substance: No Patrick was queried for this patient: No Vital Signs: 08/05/24 23:06 08/06/24 00:01 08/06/24 00:30 Temperature 98.7 F Temperature Source Oral Pulse Rate 61 64 Pulse Rate [Right] 65 Respiratory Rate 20 Blood Pressure 159/73 H 147/80 H Blood Pressure [Right Arm] 175/81 H Blood Pressure Mean 101 102 Blood Pressure Mean [Right Arm] 112 Blood Pressure Source Blood Pressure Position 02 Sat by Pulse Oximetry 100 97 95 Oxygen Delivery Method Room Air 08/06/24 01:00 08/06/24 01:30 08/06/24 02:00 Temperature Temperature Source Pulse Rate 67 68 65 Pulse Rate [Right] Respiratory Rate Blood Pressure 148/67 H 140/67 138/70 Blood Pressure [Right Arm] Blood Pressure Mean 94 91 81 Blood Pressure Mean [Right Arm] Blood Pressure Source Blood Pressure Position 02 Sat by Pulse Oximetry 97 94 L 94 L Oxygen Delivery Method 08/06/24 02:30 08/06/24 03:50 Temperature 97.9 F Temperature Source Oral Pulse Rate 61 56 L Pulse Rate [Right] Respiratory Rate 18 Blood Pressure 133/64 148/80 H Blood Pressure [Right Arm] Blood Pressure Mean 81 Blood Pressure Mean [Right Arm] Blood Pressure Source Automatic Cuff Blood Pressure Position Sitting 02 Sat by Pulse Oximetry 94 L Oxygen Delivery Method Room Air Lab Data Lab results reviewed: Yes I reviewed the patient's lab results. Lab Results 08/05/24 23:01: WBC 7.0, RBC 4.54, Hgb 13.6, Hct 41.1, MCV 90.5, MCH 30.0, MCHC 33.1, RDW 13.6, Plt Count 281, MPV 9.9, Neut % (Auto) 57.2, Lymph % (Auto) 32.5, [place]ie % (Auto) 7.2, Eos % (Auto) 1.8, Baso % (Auto) 0.9, Neut # (Auto) 4.0, Lymph # (Auto) 2.3, Davie # (Auto) 0.5, Eos # (Auto) 0.1, Baso # (Auto) 0.1, Sodium 138, Potassium 4.1, Chloride 106, Carbon Dioxide 28, Anion Gap 8.1, BUN 9, Creatinine 0.70, Estimated Creat Clear 61, Estimated GFR 83, Est GFR ( Amer) 101, Glucose 103 H, Calcium 9.6, Total Bilirubin 0.3, AST 44 H, ALT 51, Alkaline Phosphatase 86, Troponin I < 0.01, Total Protein 6.9, Albumin 4.7, Globulin 2.2, Albumin/Globulin Ratio 2.1 H, Lipase 81 08/05/24 23:48: D-Dimer 0.31 08/06/24 02:59: Troponin I < 0.01 08/05/24 23:08/05/24 23:01 Orders (Tests/Meds): ED MEDICATIONS Discontinued Medications Generic Name Dose Route Start Last Admin Trade Name Ngoc PRN Reason Stop Dose Admin Acetaminophen 1,000 mg 08/05/24 23:08 08/05/24 23:31 Acetaminophen 500mg Tab PO 08/05/24 23:09 1,000 mg ONCE ONE Administration Aspirin 243 mg 08/05/24 23:08 08/05/24 23:31 Aspirin 81mg Chewable Tablet PO 08/05/24 23:09 243 mg ONCE ONE Administration Belladonna Alkaloids 60 ml 08/05/24 23:08 08/05/24 23:31 Belladonna Alkaloids 60 Ml Ml PO 08/05/24 23:09 60 ml ONCE ONE Administration Iopamidol 80 ml 08/06/24 00:54 08/06/24 00:55 Iopamidol-370 (76%);100ml Bottle IV 08/06/24 00:55 80 ml ONCE ONE Administration Sodium Chloride 50 ml 08/06/24 00:54 08/06/24 00:55 0.9 % Sodium Chloride 50 Ml Vial IV 08/06/24 00:55 50 ml ONCE ONE Administration Sodium Chloride 10 ml 08/06/24 00:54 08/06/24 00:55 Sodium Chloride 0.9% 10ml Syr (Rad Only) IV 08/06/24 00:55 10 ml ONCE ONE Administration ORDERS Category Date Time Status CTA Chest [CT angio chest - dissection] Stat Cat Scan 08/06/24 00:02 Completed CXR --portable [XR chest portable] Stat Exams 08/05/24 23:08 Completed CBC w/Auto Diff [Complete Blood Count Auto Diff] Stat Lab 08/05/24 23:01 Completed CMP [Comprehensive Metabolic Panel] Stat Lab 08/05/24 23:01 Completed D-Dimer Stat Lab 08/05/24 23:48 Completed Lipase Stat Lab 08/05/24 23:01 Completed Troponin I Q3H Lab 08/05/24 23:01 Completed Troponin I Q3H Lab 08/06/24 02:59 Completed ECG Data Tracing #1: I reviewed this ECG and interpreted as documented below: Sinus rhythm, rate of of 74, no significant ST elevation. Low QRS voltage, no T wave changes. ECG initial impression date: 08/05/24 ECG initial impression time: 23:03 HEART Score History (anamnesis): Moderately suspicious ECG: Normal Age: 45-65 years Risk factors: No known risk factors Troponin: </= normal limit HEART Score: 2 Medical Decision Narrative: 69-year-old female with history of depression hypothyroidism presents for couple days of chest pain, couple hours of chest pain radiating to the back. History was obtained via interactive discussion with patient, chart review. On arrival, patient is [afebrile, hemodynamically stable, satting appropriately, alert, oriented x4, GCS 15], moving all extremities spontaneously. Full physical exam performed and significant for clear lungs bilaterally Differential includes but is not limited to GERD, ACS, PE, aortic pathology, C, musculoskeletal pain, pneumothorax, pericardial effusion Patient was given additional aspirin to constitute a full dose as well as Tylenol and GI cocktail for symptomatic management and correction of underlying abnormalities. Workup initiated including CBC CMP EKG troponin D-dimer cxr CTA chest. On re-evaluation, patient [remains afebrile, HD stable.] She reports mild symptomatic improvement. Laboratory workup independently interpreted by me and significant for negative initial troponin, no significant electrolyte derangement, minimal AST elevation no significant leukocytosis negative D-dimer. Imaging independently interpreted by me and significant for no evidence of aortic pathology, no PE, mild degenerative changes noted in the spine without acute fracture. See radiology read for full review of final results. Patient was placed in ED observation status for serial cardiac enzymes, cardiac monitoring and to assess need for admission. On reevaluation, repeat troponin returns undetectably low. Given this, no evidence of emergent pathology at this time. Patient was deemed appropriate for discharge with outpatient management. interactive discussion was had with outpatient regarding presentation and discharge. She was discharged with a muscle relaxer and lidocaine patches. Procedures Risk/Benefits of Procedure(s) Were Explained: Yes Critical Care Critical Care Time Critical Care Time: No
[2024-08-05] MEDS: BELLADONNA ALKALOIDS 60 ML ML PO (23:31)
[2024-08-05] MEDS: ACETAMINOPHEN 500MG TAB 1000 MG PO (23:31)
[2024-08-05] MEDS: ASPIRIN 81MG CHEWABLE TABLET 243 MG PO (23:31)
[2024-08-05 23:40] LABS: Basophils # 0.1 K/mm3 (0-0.2); Basophils % 0.9 % (0.1-2.0); Eosinophils # 0.1 K/mm3 (0.0-0.4); Eosinophils % 1.8 % (0.1-12.0); Hematocrit 41.1 % (37.0-47.0); Hemoglobin 13.6 g/dL (12.2-16.2); Lymphocytes # 2.3 K/mm3 (0.7-4.5); Lymphocytes % 32.5 % (10-50); Mean Corpuscular HGB Conc 33.1 g/dL (31.8-35.4); Mean Corpuscular Volume 90.5 fl (81-99); Mean Platelet Volume 9.9 fl (7.4-10.4); Monocytes # 0.5 K/mm3 (0.1-1.0); Monocytes % 7.2 % (1.7-9.3); Neutrophils % 57.2 % (37.0-80.0); Platelet Count 281 K/mm3 (142-424); Red Blood Count 4.54 M/mm3 (4.20-5.40); Red Cell Distribution Width 13.6 % (11.5-17.5)
[2024-08-05 23:48] LABS: Albumin Level 4.7 g/dl (3.5-5.0); Chloride 106 mmol/L (98-107); Potassium 4.1 mmoL/L (3.5-5.1); Sodium 138 mmol/L (136-145)
[2024-08-05 23:50] LABS: Alanine Aminotransferase 51 U/L (12-78); Aspartate Amino Transferase 44 U/L (14-36); Blood Urea Nitrogen 9 mg/dl (7-17); Creatinine Clearance Estimated 61 mL/min (50-200); Estimated Glomerular Filt Rate 83 ml/min (>60); GFR (African American) 101 ML/MIN (>60)
[2024-08-05 23:51] LABS: Albumin/Globulin Ratio 2.1 (1.1-1.8); Alkaline Phosphatase 86 U/L (38-126); Anion Gap 8.1 mEq/L (5-15); Bilirubin,Total 0.3 mg/dl (0.2-1.3); Calcium 9.6 mg/dl (8.4-10.2); Carbon Dioxide 28 mmol/L (22.0-30.0); Globulin 2.2 g/dL (1.3-3.2); Glucose 103 mg/dl (74-100); Lipase 81 U/L (23-300); Total Protein,Serum 6.9 g/dl (6.3-8.2)
[2024-08-06] VITALS (7 sets, daily range): BP systolic 133–159; BP diastolic 64–80; PULSE 56–68; RESP 18; TEMP 36.6; O2SAT 94–97
--- NOTE | 2024-08-06 00:02 | CT_ITS ---
PROCEDURE INFORMATION: Exam: CTA Chest With Contrast Exam date and time: 08/06/2024 12:48 AM Age: 69 years old Clinical indication: Pain; Chest pressure; Additional info: Cp, sharp thoracic back pain, HTN TECHNIQUE: Imaging protocol: Computed tomographic angiography of the chest with contrast. Exam focused on the arteries. 3D rendering (Not supervised by radiologist): MIP and/or 3D reconstructed images were created by the technologist. Radiation optimization: All CT scans at this facility use at least one of these dose optimization techniques: automated exposure control; mA and/or kV adjustment per patient size (includes targeted exams where dose is matched to clinical indication); or iterative reconstruction. Contrast material: ISOVUE; Contrast volume: 80 ml; Contrast route: INTRAVENOUS (IV); COMPARISON: CR XR CHEST PORTABLE 08/05/2024 11:16 PM FINDINGS: Pulmonary arteries: Normal. No pulmonary emboli. Great vessels off aortic arch: Note is made of an aberrant right subclavian artery. Aorta: Unremarkable. No aortic aneurysm. No aortic dissection. Lungs: There is a calcified granuloma at the medial left lung base. Pleural spaces: Unremarkable. No pneumothorax. No pleural effusion. Heart: Unremarkable. No cardiomegaly. No pericardial effusion. Lymph nodes: There are few calcified mediastinal and left hilar lymph nodes. No enlarged lymph nodes. Bones/joints: There are [id number] degenerative changes of the thoracic spine and moderate degenerative changes of the imaged cervical spine. No acute fracture. Soft tissues: Unremarkable. IMPRESSION: No acute findings. No pulmonary embolus or aortic dissection.
[2024-08-06 00:13] LABS: Troponin I < 0.01 ng/ml (0.00-0.034)
--- NOTE | 2024-08-06 00:43 | PC.NURSE ---
pt to CT at this time
[2024-08-06] MEDS: IOPAMIDOL-370 (76%);100ML BOTTLE 80 ML IV (00:55)
[2024-08-06] MEDS: SODIUM CHLORIDE 0.9% 10ML SYR (RAD ONLY) 10 ML IV (00:55)
[2024-08-06] MEDS: 0.9 % SODIUM CHLORIDE 50 ML VIAL IV (00:55)
[2024-08-06 01:03] LABS: D-Dimer 0.31 ug/mL (0.0-0.5)
--- NOTE | 2024-08-06 03:12 | PC.NURSE ---
rounded on pt and 2nd trop sent to lab. pt voices no needs. call light in reach. family at bedside.
[2024-08-06 03:36] LABS: Troponin I < 0.01 ng/ml (0.00-0.034)
== END 2024-08-06 03:51 | disposition home or self-care (01) ==
PROVIDERS: Emergency Provider Emergency Medicine
DX: R07.2 Precordial pain (principal); M54.6 Pain in thoracic spine; R07.9 Chest pain, unspecified; M54.9 Dorsalgia, unspecified; R03.0 Elevated blood-pressure reading, without diagnosis of hypertension; E03.9 Hypothyroidism, unspecified; F41.9 Anxiety disorder, unspecified
CPT/HCPCS: 71045; 71275; 80053; 83690; 84484; 85025; 85378; 93005; 99285; Q9967

== ENCOUNTER 2024-09-04 08:30 | Outpatient (POV) | payer MEDICARE, OTHER, MEDICAID, SELFPAY ==
[2024-09-04 08:40] VITALS: BP 118/65; PULSE 68; RESP 14; O2SAT 96; BMI 27.9
--- NOTE | 2024-09-04 08:48 | A.OFFVIS_ITS ---
[facility] Disclaimer: The information contained in this section may have been updated after the patient was seen, as this information can be updated by other users. Medical History Anxiety Surgical History H/O wrist surgery LEFT WRIST TO REMOVE CYST. H/O section Hx of tonsillectomy Family History Other No significant family history Social History Smoking Status: Unknown if ever smoked alcohol intake: current alcohol intake frequency: holidays/special occasions only substance use type: denies use current occupational status: other Travel in the last 8 weeks: None household members: family housing: house PM Subjective & Objective Subjective Subjective:: Patient is a pleasant 69-year-old female who presents today for 6-week follow- up. Today she does rate her pain an 8 out of 10. Patient does state that she is starting to have increased pain on a daily basis and feels like her last epidural is really starting to wear off. Patient did have a LESI L4-L5 back in June that did take about 4 days to kick in however did provide 90% relief and has worked really well up until this point. She states that it is now starting to interfere with her ability perform activities of daily living such as cooking and cleaning. Patient has continued conservative treatment at home with no additional improvement. Her Patrick has been reviewed and is appropriate. Review of Systems: General: No recent weight changes, no fever, no sleep disturbances Respiratory: No cough, no shortness of air, no recurring pulmonary infections Cardiovascular/peripheral vascular: No chest pain, no palpitations, no edema, no shortness of breath Gastrointestinal: No new onset incontinence, normal bowel movements reported Genitourinary: No new onset incontinence Musculoskeletal: Low back pain, right leg numbness tingling Psychiatric: [Normal mood/affect] Neurological: [Denies weakness in extremities], [denies balance issues] Pain at rest (0-10 scale): 8 Objective Objective:: Physical Exam: General: Alert and oriented x3, no acute distress, pleasant and cooperative Lungs: Respirations even and unlabored, symmetrical chest expansion Eyes: PERRL Musculoskeletal: Flexion and extension of lumbar [spine] somewhat guarded secondary to pain, [antalgic gait noted] positive right leg raise Neurological: Speech clear, no gross sensory deficit Has patient had previous pain injection?: No Conservative treatment options previously tried: Home exercise plan Length of treatment: Longer than 12 weeks Meds Home Medications and Allergies Home Medications ?Medication ?Instructions ?Recorded ?Confirmed ?Type venlafaxine 150 mg 150 mg PO DAILY MOOD #30 caps 01/24/19 08/07/24 History capsule,extended release 24 hr diclofenac sodium 75 mg 75 mg PO BID #60 tabs 01/15/24 08/07/24 Rx tablet,delayed release gabapentin 300 mg capsule 300 mg PO HS Leg cramps #30 caps 01/15/24 08/07/24 Rx quetiapine 25 mg tablet 25 mg PO DAILY #90 tabs 01/15/24 08/07/24 Rx meloxicam 15 mg tablet See Rx Instructions .Route 04/25/24 08/07/24 Rx .COMPLEX #30 tabs atorvastatin 20 mg tablet See Rx Instructions .Route 07/24/24 08/07/24 Rx .COMPLEX #90 tabs desvenlafaxine succinate 50 mg See Rx Instructions .Route 07/24/24 08/07/24 Rx tablet,extended release 24 hr .COMPLEX #90 tabs levothyroxine 88 mcg capsule 88 mcg PO DAILY #90 caps 07/24/24 08/07/24 Rx lidocaine 5 % topical patch 1 patch topical DAILY PRN pain #30 08/06/24 08/07/24 Rx ea methocarbamol 500 mg tablet 500 mg PO Q6H PRN pain #30 tabs 08/06/24 08/07/24 Rx nitroglycerin 0.3 mg sublingual 0.3 mg sublingual Q5M PRN chest 08/07/24 08/07/24 Rx tablet pain #20 tabs New Prescriptions to Start Prescriptions: Allergies Allergy/AdvReac Type Severity Reaction Status Date / Time No Known Allergies Allergy Verified 08/07/24 14:43 Assessment and Plan *Assessment and plan (1) Lumbar radiculopathy: Status: Acute Category: Medical Code(s): M54.16 - Radiculopathy, lumbar region (2) DDD (degenerative disc disease), lumbar: Status: Acute Category: Medical Code(s): M51.369 - Other intervertebral disc degeneration, lumbar region without mention of lumbar back pain or lower extremity pain Plan Patient is experiencing worsening pain in her low back with numbness and tingling into her lower extremities. Patient did have limited range of motion of her lumbar spine with a positive leg raise. I did discuss with patient that I do believe they would benefit from a lumbar epidural steroid injection. Risk and benefits were discussed with patient and the patient would like to proceed forward with this plan of care. Patient is not on any blood thinners. Patient has tried and failed conservative therapy including continued at home stretching exercise for longer than 12 weeks between injections. Patient did previously have a lumbar epidural back in June that provided 90% relief and lasted longer than 2 months. Patient has had chronic back pain for years. We will schedule the patient for an LESI L4-L5 under fluoroscopy. Patient has been instructed to contact the clinic with any concerns before the next appointment. Dr. Wilder has reviewed this note and agrees with this plan of care. This note was dictated using voice recognition software and make contain errors or omissions. All injections are used with Lidocaine, Bupivacaine and Depo Medrol. Occasionally urine drug screen is needed to verify patient's compliance with our office pain contract. This is ordered based off specific treatments related to chronic pain with the potential to abuse certain medications.
== END 2024-09-04 23:59 | disposition home or self-care (01) ==
LOC: SC.PAIN 08:33
PROVIDERS: PCP Internal Medicine; Visit Provider Nurse Practitioner Family
DX: M51.16 Intervertebral disc disorders with radiculopathy, lumbar region (principal); Z73.89 Other problems related to life management difficulty
CPT/HCPCS: 99212; G0463

== ENCOUNTER 2024-10-01 14:03 | Day surgery (SDC) | payer MEDICARE, OTHER, MEDICAID, SELFPAY ==
[2024-10-01 14:14] VITALS: BP 121/47; PULSE 69; RESP 16; TEMP 36.4; O2SAT 97; BMI 27.9
[2024-10-01 14:19] VITALS: BP 138/63; PULSE 65; RESP 18; O2SAT 99
[2024-10-01 14:20] VITALS: BP 138/63; PULSE 65; RESP 18; O2SAT 99
--- NOTE | 2024-10-01 14:21 | EXP.PAIN.PRO ---
Procedure Date: 10/01/24 Time: 14:20 Anesthesiologist:: Stef Durham CRNA Complications:: None Pre-procedure Diagnosis:: Degenerative disc lumbar spine multilevels. Lumbar radiculopathy. Post-procedure Diagnosis:: Same. Indications for Procedure:: Patient is a very pleasant 69-year-old female who comes our clinic today for lumbar epidural steroid injection at the L4-5 level. Patient describes low lumbar back pain as well as bilateral hip and leg radicular symptoms. She reports difficulty with ambulation due to low back pain. She rates her pain 7/10. Procedure Details:: Procedure: Lumbar epidural steroid injection under fluoroscopy Informed consent was obtained and the risks and benefits of the procedure were explained to the patient. The patient was taken to the procedure room and noninvasive monitors placed, including noninvasive blood pressure cuff and pulse oximeter. The back was viewed using C-arm Fluoroscopy and prepped using Chloraprep as a cleansing solution and the L4-L5 interspace was palpated. Skin and subcutaneous tissues were anesthetized using lidocaine 1.5% and a 25-gauge needle. After this, an 18-gauge Touhy epidural needle was placed into the L4-L5 interspace and advanced using fluoroscopic guidance and loss of resistance to air until the epidural space was encountered. After confirmation of needle placement in the epidural space, with dye, a solution containing normal saline, 3 mL and Depo-Medrol 80 mg were incrementally injected into the lumbar epidural space. The patient tolerated the procedure well with no complications. The patient was observed in the Pain Clinic and then discharged home neurologically intact. Plan and Disposition:: Patient was discharged without incident.
[2024-10-01 14:25] VITALS: BP 134/67; PULSE 61; RESP 16; O2SAT 98
== END 2024-10-01 14:25 | disposition home or self-care (01) ==
PROVIDERS: PCP Internal Medicine; Visit Provider Nurse Anesthetist, Certified Registered
DX: M51.16 Intervertebral disc disorders with radiculopathy, lumbar region (principal)
CPT/HCPCS: 62323

== ENCOUNTER 2024-10-23 09:12 | Outpatient (POV) | payer MEDICARE, OTHER, MEDICAID, SELFPAY ==
--- NOTE | 2024-10-23 09:43 | A.OFFVIS_ITS ---
[facility] Disclaimer: The information contained in this section may have been updated after the patient was seen, as this information can be updated by other users. Medical History Anxiety Surgical History H/O wrist surgery LEFT WRIST TO REMOVE CYST. H/O section Hx of tonsillectomy Family History Other No significant family history Social History Smoking Status: Unknown if ever smoked alcohol intake: current alcohol intake frequency: holidays/special occasions only substance use type: denies use current occupational status: other Travel in the last 8 weeks?: None household members: family housing: house PM Subjective & Objective Subjective Subjective:: Patient is a pleasant 69-year-old female who presents today for follow-up of her lumbar epidural steroid injection L4-L5 on 10/01/2024. Today she rates her pain a 7 out of 10. She states that fairly quickly after this injection she did notice significant improvement at the least 50%. Patient does however feel like it was short-lived. Patient states that the leg symptoms she was experiencing are not present however she is having a lot of pain there at her right low back and right hip. Patient states that this pain is fairly constant and is interfering with her ability perform activities of daily living such as cooking and cleaning. Patient is interested in additional options. Patient states that it does seem to be aggravated with prolonged positioning or increased activity such as walking. Patient has continued conservative treatment with no changes. Patient has been prescribed diclofenac in the past however recently has had some cardiac related issues and that the information systems professor did not recommend this on a regular basis. Patient does still use her compounded cream. Her Patrick has been reviewed and is appropriate. Review of Systems: General: No recent weight changes, no fever, no sleep disturbances Respiratory: No cough, no shortness of air, no recurring pulmonary infections Cardiovascular/peripheral vascular: No chest pain, no palpitations, no edema, no shortness of breath Gastrointestinal: No new onset incontinence, normal bowel movements reported Genitourinary: No new onset incontinence Musculoskeletal: Low back pain, right sided, right hip pain Psychiatric: [Normal mood/affect] Neurological: [Denies weakness in extremities], [denies balance issues] Pain at rest (0-10 scale): 7 Objective Objective:: Physical Exam: General: Alert and oriented x3, no acute distress, pleasant and cooperative Lungs: Respirations even and unlabored, symmetrical chest expansion Eyes: PERRL Musculoskeletal: Flexion and extension of lumbar [spine] somewhat guarded secondary to pain, [antalgic gait noted] point tenderness along right SI and right greater trochanteric bursa with positive right Henry's, Colleen's, Gaenslen's, compression and distraction exam Neurological: Speech clear, no gross sensory deficit Has patient had previous pain injection?: Yes Percent improvement in pain since last injection: 50% Conservative treatment options previously tried: Home exercise plan Length of treatment: Longer than 12 weeks Meds Home Medications and Allergies Home Medications ?Medication ?Instructions ?Recorded ?Confirmed ?Type venlafaxine 150 mg 150 mg PO DAILY MOOD #30 caps 01/24/19 10/01/24 History capsule,extended release 24 hr diclofenac sodium 75 mg 75 mg PO BID #60 tabs 01/15/24 10/01/24 Rx tablet,delayed release gabapentin 300 mg capsule 300 mg PO HS Leg cramps #30 caps 01/15/24 10/01/24 Rx atorvastatin 20 mg tablet See Rx Instructions .Route 07/24/24 10/01/24 Rx .COMPLEX #90 tabs desvenlafaxine succinate 50 mg See Rx Instructions .Route 07/24/24 10/01/24 Rx tablet,extended release 24 hr .COMPLEX #90 tabs levothyroxine 88 mcg capsule 88 mcg PO DAILY #90 caps 07/24/24 10/01/24 Rx lidocaine 5 % topical patch 1 patch topical DAILY PRN pain #30 08/06/24 10/01/24 Rx ea methocarbamol 500 mg tablet 500 mg PO Q6H PRN pain #30 tabs 08/06/24 10/01/24 Rx nitroglycerin 0.3 mg sublingual 0.3 mg sublingual Q5M PRN chest 08/07/24 10/01/24 Rx tablet pain #20 tabs losartan 25 mg PO DIRECTED Blood Pressure 09/04/24 10/01/24 History quetiapine 25 mg tablet 25 mg PO DAILY #90 tabs 09/20/24 10/01/24 Rx meloxicam 15 mg tablet See Rx Instructions .Route 10/10/24 Rx .COMPLEX #30 tabs New Prescriptions to Start Prescriptions: Allergies Allergy/AdvReac Type Severity Reaction Status Date / Time No Known Allergies Allergy Verified 08/07/24 14:43 Assessment and Plan *Assessment and plan (1) Sacroiliac inflammation: Status: Acute Category: Medical Code(s): M46.1 - Sacroiliitis, not elsewhere classified (2) Greater trochanteric bursitis of right hip: Status: Acute Category: Medical Code(s): M70.61 - Trochanteric bursitis, right hip Plan Patient is experiencing worsening pain in her right SI and right greater trochanteric bursa with point tenderness with palpation. Patient did have limited range of motion. I did discuss with patient due to her significant pain that she would benefit from right SI and right bursa. Risk and benefits were discussed with patient and she would like to proceed forward with this plan of care. Patient does have a longstanding history of chronic back pain that has been going on for longer than 6 months. Patient is no longer having complaints of radiating symptoms into her legs. The pain is primarily staying at her low back and right hip. Patient has continued oral medications, heat and ice, topicals, previous physical therapy and continued at home stretching exercise for longer than 12 weeks. Patient will be scheduled for right SI and right bursa injection under fluoroscopy. Patient does have a longstanding history of chronic sacroiliitis with her last injection in May that did provide 80% improvement and has lasted 3 months. This will be a therapeutic injection with less than 1.5 cc injected. Patient may still be a future candidate of SI fusion. We will follow-up with this in future. I will send in a prescription of methocarbamol 500 mg 3 times daily as needed with a 2-week dose. Patient has been instructed to contact the clinic with any concerns before the next appointment. Dr. Wilder has reviewed this note and agrees with this plan of care. This note was dictated using voice recognition software and make contain errors or omissions. All injections are used with Lidocaine, Bupivacaine and dexamethasone. Occasionally urine drug screen is needed to verify patient's compliance with our office pain contract. This is ordered based off specific treatments related to chronic pain with the potential to abuse certain medications.
[2024-10-23 10:03] VITALS: BP 130/66; PULSE 76; RESP 18; O2SAT 99; BMI 28.3
== END 2024-10-23 23:59 | disposition home or self-care (01) ==
PROVIDERS: PCP Internal Medicine; Visit Provider Nurse Practitioner Family
DX: M46.1 Sacroiliitis, not elsewhere classified (principal); M70.61 Trochanteric bursitis, right hip; Z73.89 Other problems related to life management difficulty
CPT/HCPCS: 99212; G0463

== ENCOUNTER 2024-11-19 13:07 | Day surgery (SDC) | payer MEDICARE, OTHER, MEDICAID, SELFPAY ==
[2024-11-19 13:30] VITALS: BP 136/60; PULSE 74; RESP 16; TEMP 36.6; O2SAT 99; BMI 27.8
[2024-11-19] MEDS: LIDOCAINE 1% 5ML PF VIAL 5 ML (13:41)
[2024-11-19] MEDS: DEXAMETHASONE 10MG/ML 1ML VIAL 10 MG (13:41)
[2024-11-19] MEDS: BUPIVACAINE 0.25% 10ML INJ 25 MG IJ (13:41)
[2024-11-19 13:44] VITALS: BP 134/56; PULSE 72; RESP 18; O2SAT 96
[2024-11-19 13:45] VITALS: BP 134/56; PULSE 72; RESP 18; O2SAT 95
--- NOTE | 2024-11-19 13:48 | P.PCN_ITS ---
Procedure Date: 11/19/24 Time: 13:45 Anesthesiologist:: Stef Durham CRNA Complications:: None Pre-procedure Diagnosis:: Right sacroiliitis. Right trochanteric bursitis. Post-procedure Diagnosis:: Same. Indications for Procedure:: Patient is a very pleasant 69-year-old female who comes our clinic today for right sacroiliac joint injection of cortisone and local anesthetic. Also, right trochanteric bursa injection of cortisone local anesthetic. Patient has extreme point tenderness over the right sacroiliac joint as well as the right trochanteric bursa area. She is reporting pain is constant, dull, aching. Specifically, lying on her right side is painful. She is having difficulty with ambulation due to right posterior hip pain as well as a right lateral hip pain. She rates her pain 7/10. Procedure Details:: Procedure: Right sacroliliac joint injection under fluoroscopy Informed consent was obtained and the risk and benefits of the procedure were explained to the patient.~ The patient was taken to the procedure room and noninvasive monitors were placed including noninvasive blood pressure cuff and pulse oximeter.~ The patient was placed prone on the procedure table.~ The~ right hip was cleansed using Betadine as a cleansing solution.~ C-arm fluorosocpy was used to view the right SI joint.~ The skin and subcutaneous tissues were anesthetized using Lidocaine 1.5% and a 25-gauge needle.~ After this, a 22-gauge spinal needle was inserted under fluoroscopic guidance into the inferior aspect of the right SI joint.~ Omnipaque dye was injected and a good spread was seen throughout the joint.~ After this, approximately 5 mL of bupivacaine 0.25% and Depo-Medrol 40 mg was incrementally injected into the sacroiliac joint.~ The patient tolerated the procedure well with no complications.~ The patient was observed in the Pain Clinic, then discharged home neurologically intact.~ Procedure: Right trochanteric bursa injection under fluoroscopy We then moved to the right trochanteric bursa.~ C-arm fluoroscopy was used to view the left greater trochanter.~ The skin and subcutaneous tissues overlying the right greater trochanter were anesthetized using lidocaine, 1.5% and a 25- gauge needle.~ After this, a 22-gauge spinal needle was inserted and advanced until it contacted the right greater trochanter.~ Dye was injected and good spread was seen throughout the right trochanteric bursa. After this, approximately 5 mL of bupivacaine, 0.25% and Depo-Medrol, 40 mg was incrementally injected into the right right trochanteric bursa.~ The patient tolerated the procedure well with no complications. Plan and Disposition:: Patient was discharged without incident.
[2024-11-19 13:50] VITALS: BP 130/60; PULSE 69; RESP 16; O2SAT 97
== END 2024-11-19 13:50 | disposition home or self-care (01) ==
PROVIDERS: PCP Internal Medicine; Visit Provider Nurse Anesthetist, Certified Registered
DX: M46.1 Sacroiliitis, not elsewhere classified (principal); M70.61 Trochanteric bursitis, right hip; F41.9 Anxiety disorder, unspecified; Z79.899 Other long term (current) drug therapy; Z79.1 Long term (current) use of non-steroidal anti-inflammatories (NSAID); Z79.890 Hormone replacement therapy
CPT/HCPCS: 20610; G0260; J0665; J1100; J2003

== ENCOUNTER 2024-12-11 14:52 | Outpatient (POV) | payer MEDICARE, OTHER, MEDICAID, SELFPAY ==
--- NOTE | 2024-12-11 15:09 | EXP.PAIN.SOA ---
[facility] Disclaimer: The information contained in this section may have been updated after the patient was seen, as this information can be updated by other users. Medical History Anxiety Surgical History H/O wrist surgery LEFT WRIST TO REMOVE CYST. H/O section Hx of tonsillectomy Family History Other No significant family history Social History Smoking Status: Unknown if ever smoked alcohol intake: current alcohol intake frequency: holidays/special occasions only substance use type: denies use current occupational status: other Travel in the last 8 weeks?: None household members: family housing: house PM Subjective & Objective Subjective Subjective:: Patient is a pleasant 69-year-old female who presents today for follow-up of her right SI and right bursa injection on 11/19/2024. She is rating 80% relief following these injections. She states that it did take about 4 to 5 days for it to kick in but it did really help. Patient is however stating that she is noticing more radicular symptoms down the entire right leg with numbness and tingling. Patient does state that a lot of times she feels like her right leg is going to give a help. She is rating that pain a 5 out of 10. Patient is interested in repeating her prior injections to help with those symptoms as it is interfering with her ability perform activities of daily living such as cooking and cleaning. Patient has continued conservative treatments with minimal changes. Patient is currently managed with compounded cream and methocarbamol 500 mg 3 times a day from our office. She does state that the muscle relaxer did help and did not cause any fatigue. Her Patrick has been reviewed and is appropriate. Review of Systems: General: No recent weight changes, no fever, no sleep disturbances Respiratory: No cough, no shortness of air, no recurring pulmonary infections Cardiovascular/peripheral vascular: No chest pain, no palpitations, no edema, no shortness of breath Gastrointestinal: No new onset incontinence, normal bowel movements reported Genitourinary: No new onset incontinence Musculoskeletal: Right leg numbness tingling Psychiatric: [Normal mood/affect] Neurological: [Denies weakness in extremities], [denies balance issues] Pain at rest (0-10 scale): 5 Objective Objective:: Physical Exam: General: Alert and oriented x3, no acute distress, pleasant and cooperative Lungs: Respirations even and unlabored, symmetrical chest expansion Eyes: PERRL Musculoskeletal: Flexion and extension of lumbar [spine] somewhat guarded secondary to pain, [antalgic gait noted] positive right leg raise with decreased sensation to light touch and decreased reflexes Neurological: Speech clear, no gross sensory deficit Has patient had previous pain injection?: Yes Percent improvement in pain since last injection: 80% Conservative treatment options previously tried: Home exercise plan Length of treatment: Longer than 12 weeks Meds Home Medications and Allergies Home Medications ?Medication ?Instructions ?Recorded ?Confirmed ?Type venlafaxine 150 mg 150 mg PO DAILY MOOD #30 caps 01/24/19 11/19/24 History capsule,extended release 24 hr diclofenac sodium 75 mg 75 mg PO BID #60 tabs 01/15/24 11/19/24 Rx tablet,delayed release gabapentin 300 mg capsule 300 mg PO HS Leg cramps #30 caps 01/15/24 11/19/24 Rx atorvastatin 20 mg tablet See Rx Instructions .Route 07/24/24 11/19/24 Rx .COMPLEX #90 tabs desvenlafaxine succinate 50 mg See Rx Instructions .Route 07/24/24 11/19/24 Rx tablet,extended release 24 hr .COMPLEX #90 tabs levothyroxine 88 mcg capsule 88 mcg PO DAILY #90 caps 07/24/24 11/19/24 Rx lidocaine 5 % topical patch 1 patch topical DAILY PRN pain #30 08/06/24 11/19/24 Rx ea methocarbamol 500 mg tablet 500 mg PO Q6H PRN pain #30 tabs 08/06/24 11/19/24 Rx nitroglycerin 0.3 mg sublingual 0.3 mg sublingual Q5M PRN chest 08/07/24 11/19/24 Rx tablet pain #20 tabs losartan 25 mg PO DIRECTED Blood Pressure 09/04/24 11/19/24 History quetiapine 25 mg tablet 25 mg PO DAILY #90 tabs 09/20/24 11/19/24 Rx meloxicam 15 mg tablet See Rx Instructions .Route 10/10/24 11/19/24 Rx .COMPLEX #30 tabs methocarbamol 500 mg tablet 500 mg PO TID #42 tabs 10/23/24 11/19/24 Rx New Prescriptions to Start Prescriptions: Allergies Allergy/AdvReac Type Severity Reaction Status Date / Time No Known Allergies Allergy Verified 08/07/24 14:43 Assessment and Plan *Assessment and plan (1) Lumbar radiculopathy: Status: Acute Category: Medical Code(s): M54.16 - Radiculopathy, lumbar region (2) Right leg pain: Status: Acute Category: Medical Code(s): M79.604 - Pain in right leg Plan Patient is experiencing worsening pain in her low back with symptoms radiating down her entire right leg. Patient had limited range of motion of her lumbar spine along with a positive right leg raise and decreased sensation to light touch and decreased reflexes during today's exam. I have discussed with the patient that they may benefit from a transforaminal epidural steroid injection. Risk and benefits were discussed with the patient and she would like to proceed forward with this plan of care. Patient is not on any blood thinners. Patient has tried and failed conservative therapy including oral medications, heat and ice, topicals, prior physical therapy and continued at home stretching exercise for longer than 12 weeks that was physician guided. Patient has had chronic low back pain with radicular symptoms for longer than 6 months. Patient is not on any blood thinners. Patient had her last epidural in September and it did provide 50% relief however did not last as long as the 1 previously. Patient did get about a month and 1/2 to 2 months improvement. Her epidural prior to that did provide 90% relief and lasted approximately 3 months. Patient has not had a transforaminal injection in the past. We will schedule the patient for a right transforaminal epidural steroid injection L4-L5 and L5-S1. Patient has been instructed to contact the clinic with any concerns before the next appointment. Dr. Wilder has reviewed this note and agrees with this plan of care. This note was dictated using voice recognition software and make contain errors or omissions.
[2024-12-11 15:13] VITALS: BP 101/56; PULSE 74; RESP 18; O2SAT 98; BMI 28.3
== END 2024-12-11 23:59 | disposition home or self-care (01) ==
LOC: SC.PAIN 14:54
PROVIDERS: PCP Internal Medicine; Visit Provider Nurse Practitioner Family
DX: M54.16 Radiculopathy, lumbar region (principal); M79.604 Pain in right leg
CPT/HCPCS: 99212; G0463

== ENCOUNTER 2025-01-14 10:32 | Day surgery (SDC) | payer MEDICARE, OTHER, MEDICAID, SELFPAY ==
[2025-01-14 10:46] VITALS: BP 143/64; PULSE 61; RESP 18; O2SAT 97; BMI 27.9
--- NOTE | 2025-01-14 11:23 | EXP.PAIN.PRO ---
Procedure Date: 01/14/25 Time: 11:10 Anesthesiologist:: Stef Durham CRNA Complications:: None Pre-procedure Diagnosis:: Degenerative disc lumbar spine multilevels. Lumbar radiculopathy. Lumbar disc bulge multilevel lumbar spine. Post-procedure Diagnosis:: Same. Indications for Procedure:: Patient is a pleasant 69-year-old female who comes to our clinic today for right L4-5 and L5-S1 transforaminal epidural steroid injection. Patient describes low lumbar back pain off the midline to the right. Right hip and leg radicular symptoms to the heel. She has responded to this injection in the past. She rates her pain today 6/10. Procedure Details:: Details of the procedure explained to the patient. The patient was taken to procedure room placed in the prone position. The area over the lumbar spine was cleansed using chlorhexidine as a cleansing solution. Using fluoroscopy guidance markers were placed over the right border of the L4-5 and L5-S1 vertebral body. At each marker the skin and subcutaneous tissue was anesthetized using 1% lidocaine and a 25-gauge needle. At this time using fluoroscopy guidance 3 and half inch 22-gauge spinal needle was used to access the upper one third of the L4 for 5 and L5-S1 foramen. Using fluoroscopy guidance in the lateral position needle position was confirmed using 0.5 mL of contrast dye. Good spread was noted in the epidural space at each level. After negative aspiration 2 mL of 1% lidocaine and 10 mg of dexamethasone was injected at each level. Patient tolerated procedure without difficulty. There are no complications. Plan and Disposition:: Patient was discharged without incident.
[2025-01-14] MEDS: IOPAMIDOL-200 (41%);10ML VIAL 5 ML IV (11:24)
[2025-01-14 11:28] VITALS: BP 120/60; PULSE 58; RESP 18; O2SAT 98
[2025-01-14] MEDS: BUPIVACAINE 0.25% 10ML INJ IJ (11:46)
[2025-01-14] MEDS: LIDOCAINE 1% 5ML PF VIAL 5 ML (11:47)
[2025-01-14] MEDS: DEXAMETHASONE 10MG/ML 1ML VIAL 10 MG (11:48)
[2025-01-14 11:49] VITALS: BP 133/64; PULSE 57; RESP 18; O2SAT 98
[2025-01-14 11:52] VITALS: BP 133/64; PULSE 57; RESP 18; O2SAT 98
== END 2025-01-14 11:28 | disposition home or self-care (01) ==
PROVIDERS: PCP Internal Medicine; Visit Provider Nurse Anesthetist, Certified Registered
DX: M51.16 Intervertebral disc disorders with radiculopathy, lumbar region (principal); F41.9 Anxiety disorder, unspecified; Z79.890 Hormone replacement therapy; Z79.899 Other long term (current) drug therapy
CPT/HCPCS: 64483; 64484; J0665; J1100; J2003; Q9966

== ENCOUNTER 2025-03-17 17:00 | Outpatient (CLI) | payer MEDICARE, OTHER, MEDICAID, SELFPAY ==
[2025-03-17 14:25] LABS: Alanine Aminotransferase 32 U/L (12-78); Albumin Level 3.7 g/dl (3.5-5.0); Albumin/Globulin Ratio 1.9 (1.1-1.8); Alkaline Phosphatase 92 U/L (38-126); Anion Gap 12.0 mEq/L (5-15); Aspartate Amino Transferase 32 U/L (14-36); Bilirubin,Total 0.8 mg/dl (0.2-1.3); Blood Urea Nitrogen 15 mg/dl (7-17); Calcium 9.0 mg/dl (8.4-10.2); Carbon Dioxide 27 mmol/L (22.0-30.0); Chloride 104 mmol/L (98-107); Cholesterol 176 mg/dl (140-200); Creatinine,Serum 0.80 mg/dl (0.52-1.04); Estimated Glomerular Filt Rate 71 ml/min (>60); GFR (African American) 86 ML/MIN (>60); Globulin 2.0 g/dL (1.3-3.2); Glucose 99 mg/dl (74-100); HDL Cholesterol 66 mg/dl (40-60); Potassium 5.0 mmoL/L (3.5-5.1); Sodium 138 mmol/L (136-145); Total Protein,Serum 5.7 g/dl (6.3-8.2); Triglycerides 129 mg/dl (30-150)
[2025-03-17 15:29] LABS: Thyroid Stimulating Hormone 1.47 uIU/mL (0.465-4.68)
--- OUTSIDE RECORDS SUMMARY | 2025-03-18 17:02 | XMS_ITS | Clinical Summary ---
Author Organization [facility] Address [address] [place] [address] Care Team Providers Care English Instructor Name Role Phone Obdulio Hernandez MD Primary Care Provider [phone] Allergies No known active allergies Medications atorvastatin (LIPITOR) 20 MG tablet Take 1 tablet by mouth Daily. 07/24/2024 Active desvenlafaxine (PRISTIQ) 50 MG 24 hr tablet Take 1 tablet by mouth Daily. 07/24/2024 Active levothyroxine (SYNTHROID, LEVOTHROID) 88 MCG tablet Take 1 tablet by mouth Daily. 07/24/2024 Active meloxicam (MOBIC) 15 MG tablet Take 1 tablet by mouth As Needed. 08/13/2024 Active methocarbamol (ROBAXIN) 500 MG tablet Take 1 tablet by mouth every 6 (six) to 8 (eight) hours as needed for Pain. 08/06/2024 Active nitroglycerin (NITROSTAT) 0.[address] 1 tablet under the tongue Every 5 (Five) Minutes As Needed for Chest Pain. do not exceed a total of 3 doses in 15 minutes 08/08/2024 Active QUEtiapine (SEROquel) 25 MG tablet Take 1 tablet by mouth Daily. 06/24/2024 Active aspirin 81 MG EC tablet Take 1 tablet by mouth Daily. Active losartan (COZAAR) 50 MG tablet Take 1 tablet by mouth Daily. 90 tablet 1 09/16/2024 Active Active Problems Problem Noted Date Diagnosed Date Exertional angina 08/14/2024 Precordial chest pain 08/13/2024 Primary hypertension 08/13/2024 Mixed hyperlipidemia 08/13/2024 Family History Medical History Relation Name Comments No Known Problems Father Heart attack Mother Stents Relation Name Status Comments Father Mother Social History Tobacco Use Types Packs/Day Years Used Date Smoking Tobacco: Former Cigarettes Passive Smoke Exposure: Past Smokeless Tobacco: Never Tobacco Cessation:Counseling Given: Not Answered Alcohol Use Standard Drinks/Week Comments Yes 5 (1 standard drink = 0.6 oz pur e alcohol) weekly Comments Unknown Sex and Gender Information Value Date Recorded Sex Assigned at Not on file Legal Sex Female 2:22 PM EST Gender Identity Not on file Sexual Orientation Not on file Last Filed Vital Signs Vital Sign Reading Time Taken Comments Blood Pressure 125/64 09/11/2024 12:46 PM EDT Pulse 65 09/11/2024 12:46 PM EDT Temperature 36.3 C (97.4 F) 09/11/2024 12:25 PM EDT Respiratory Rate 14 09/11/2024 12:25 PM EDT Oxygen Saturation 100% 09/11/2024 12:25 PM EDT Inhaled Oxygen Concentration - - Weight 74.9 kg (165 lb 0.2 oz) 09/11/2024 12:25 PM EDT Height 162.6 cm (5' 4 ) 09/11/2024 12:25 PM EDT Body Mass Index 28.32 09/11/2024 12:25 PM EDT Plan of Treatment Health Maintenance Due Date Last Done Comments DXA SCAN 1956 LIPID PANEL 1956 TDAP/TD VACCINES (1 - Tdap) 1975 MAMMOGRAM 1996 COLOGUARD 2001 COLON CANCER SCREENING 5 YEA R SIGMOIDOSCOPY 2001 COLONOSCOPY 2001 [address] CANCER SCREENING 2001 CT COLONOGRAPHY 2001 FECAL OCCULT BLOOD TEST 2001 FIT Testing (1 year) 2001 Pneumococcal Vaccine 50+ (1 of 1 - PCV) 2006 ZOSTER VACCINE (1 of 2) 2006 ANNUAL WELLNESS VISIT 08/13/2024 HEPATITIS C SCREENING 08/13/2024 INFLUENZA VACCINE 01/03/2025 COVID-19 Vaccine ( season) 2025, 10/03/2020 Insurance 1967 [facility] [place] [id number] MEDICARE A & B Member Subscriber Plan / Payer (Ef fective 2021-Present) Name:Juan CarlosVera pittman Denise Member ID:[id number] Relation to Subscriber:Self Name:Vera Wheeler Subscriber ID:[id number] Payer ID:[id number] Group ID:Not on file Type:Not on file Address: [address] Care Teams English Instructor Relationship Specialty Start Date End Date Obdulio Hernandez MD [address] [facility] [address] [place] [id number] PCP - General Internal Medicine 08/13/24
== END 2025-03-17 23:59 | disposition home or self-care (01) ==
LOC: LAB.DROPOF 03-18 17:01
PROVIDERS: PCP Internal Medicine; Visit Provider Internal Medicine
DX: E78.5 Hyperlipidemia, unspecified (principal); Z51.81 Encounter for therapeutic drug level monitoring; Z79.1 Long term (current) use of non-steroidal anti-inflammatories (NSAID); M15.0 Primary generalized (osteo)arthritis; E03.9 Hypothyroidism, unspecified
CPT/HCPCS: 80053; 80061; 84443

== ENCOUNTER 2025-03-28 12:38 | Outpatient (CLI) | payer MEDICARE, OTHER, MEDICAID, SELFPAY ==
--- OUTSIDE RECORDS SUMMARY | 2025-03-28 12:42 | XMS_ITS | Clinical Summary ---
Author Organization [facility] Address [address] [place] [address] Care Team Providers Care Development Disability Specialist Name Role Phone Obdulio Hernandez MD Primary Care Provider [phone] Allergies No known active allergies Medications atorvastatin [...] 2006 ZOSTER VACCINE (1 of 2) 2006 COVID-19 Vaccine (3 - Moderna risk series) 11/28/2020 10/31/2020, 10/03/2020 ANNUAL WELLNESS VISIT 08/13/2024 HEPATITIS C SCREENING 08/13/2024 INFLUENZA VACCINE 01/03/2025 Insurance 1967 [facility] [place] [id number] MEDICARE A & B Member Subscriber Plan / Payer (Ef fective 2021-Present) Name:Juan CarlosVera pittman Denise Member ID:[id number] Relation to Subscriber:Self Name:Vera Wheeler Subscriber ID:[id number] Payer ID:[id number] Group ID:Not on file Type:Not on file Address: [address] [place] [address] Care Teams Development Disability Specialist Relationship Specialty Start Date End Date Obdulio Hernandez MD [address] [facility] [address] [place] [address] PCP - General Internal Medicine 08/13/24
--- NOTE | 2025-03-28 13:00 | MM_ITS ---
PROCEDURE INFORMATION: Exam: MG Bilateral Screening 3D Mammography Exam date and time: 03/28/2025 1:02 PM Age: 69 years old Clinical indication: Screening examination TECHNIQUE: Imaging protocol: Bilateral Screening tomosynthesis and 2D mammography including computer-aided detection (CAD) when performed. COMPARISON: No relevant prior studies available. FINDINGS: MAMMOGRAPHY: Breast composition: There are scattered areas of fibroglandular density. Mass: None. Architectural distortion: None. Calcifications: No suspicious calcifications. Asymmetric density: None. Skin thickening: None. Axillary adenopathy: None. IMPRESSION: No mammographic evidence of malignancy. Annual screening is recommended unless otherwise clinically indicated. ASSESSMENT: BI-RADS Category 1: Negative.
== END 2025-03-28 23:59 | disposition home or self-care (01) ==
LOC: RAD 12:39
PROVIDERS: PCP Internal Medicine; Visit Provider Internal Medicine
DX: Z12.31 Encounter for screening mammogram for malignant neoplasm of breast (principal); R92.323 Mammographic fibroglandular density, bilateral breasts
CPT/HCPCS: 77063; 77067

== ENCOUNTER 2025-05-13 10:10 | Day surgery (SDC) | payer MEDICARE, OTHER, MEDICAID, SELFPAY ==
[2025-05-13 10:34] VITALS: BP 102/66; PULSE 74; RESP 16; O2SAT 95; BMI 27.9
[2025-05-13 10:35] VITALS: BP 152/80; PULSE 72; RESP 18; O2SAT 97
[2025-05-13] MEDS: BUPIVACAINE 0.25% 10ML INJ 25 MG IJ (10:38)
[2025-05-13] MEDS: DEXAMETHASONE 10MG/ML 1ML VIAL 10 MG (10:39)
[2025-05-13] MEDS: LIDOCAINE 1% 5ML PF VIAL 5 ML (10:39)
[2025-05-13 10:41] VITALS: BP 152/80; PULSE 67; RESP 18; O2SAT 98
[2025-05-13 10:50] VITALS: BP 114/64; PULSE 79; RESP 16; O2SAT 100
--- NOTE | 2025-05-13 10:52 | P.PCN_ITS ---
Procedure Date: 05/13/25 Time: 10:40 Anesthesiologist:: Williams Durham CRNA Complications:: None Pre-procedure Diagnosis:: Right trochanteric bursitis. Right sacroiliitis. Post-procedure Diagnosis:: Same. Indications for Procedure:: Patient is a pleasant 69-year-old female who comes to our clinic today for a right sacroiliac joint injection of cortisone and local anesthetic. Also, right trochanteric bursa injection of local anesthetic and cortisone. She describes right low lumbar back pain as well as right lateral hip pain is constant, dull, aching. She rates pain 7/10. Procedure Details:: Procedure: Right sacroliliac joint injection under fluoroscopy Informed consent was obtained and the risk and benefits of the procedure were explained to the patient.~ The patient was taken to the procedure room and noninvasive monitors were placed including noninvasive blood pressure cuff and pulse oximeter.~ The patient was placed prone on the procedure table.~ The~ right hip was cleansed using Betadine as a cleansing solution.~ C-arm fluorosocpy was used to view the right SI joint.~ The skin and subcutaneous tissues were anesthetized using Lidocaine 1.5% and a 25-gauge needle.~ After this, a 22-gauge spinal needle was inserted under fluoroscopic guidance into the inferior aspect of the right SI joint.~ Omnipaque dye was injected and a good spread was seen throughout the joint.~ After this, approximately 5 mL of bupivacaine 0.25% and dexamethasone 10 mg mg was incrementally injected into the sacroiliac joint.~ The patient tolerated the procedure well with no complications.~ The patient was observed in the Pain Clinic, then discharged home neurologically intact.~ Procedure: Right trochanteric bursa injection under fluoroscopy We then moved to the right trochanteric bursa.~ C-arm fluoroscopy was used to view the left greater trochanter.~ The skin and subcutaneous tissues overlying the right greater trochanter were anesthetized using lidocaine, 1.5% and a 25- gauge needle.~ After this, a 22-gauge spinal needle was inserted and advanced until it contacted the right greater trochanter.~ Dye was injected and good spread was seen throughout the right trochanteric bursa. After this, approximately 5 mL of bupivacaine, 0.25% and dexamethasone 10 mg was incrementally injected into the right right trochanteric bursa.~ The patient tolerated the procedure well with no complications. Plan and Disposition:: Patient was discharged without incident.
== END 2025-05-13 10:50 | disposition home or self-care (01) ==
PROVIDERS: PCP Internal Medicine; Visit Provider Nurse Anesthetist, Certified Registered
DX: M46.1 Sacroiliitis, not elsewhere classified (principal); F41.9 Anxiety disorder, unspecified; Z79.899 Other long term (current) drug therapy; Z79.890 Hormone replacement therapy; E03.9 Hypothyroidism, unspecified; E78.5 Hyperlipidemia, unspecified; I10 Essential (primary) hypertension
CPT/HCPCS: G0260; J0665; J1100; J2003